=== PATIENT | female | born 2000 | race Two or more races ===

== ENCOUNTER 2024-08-02 11:37 | Outpatient (AMB) | payer MEDICAID, SELFPAY ==
[2024-08-02 11:43] VITALS: BP 149/88; PULSE 90; RESP 16; TEMP 36.2; O2SAT 99
--- NOTE | 2024-08-02 11:43 | AMB.OBINITIA ---
Vital Signs 08/02/24 11:43 Weight 58.74 kg Weight Measurement Method Standing Scale BP 149/88 H Blood Pressure Source Automatic Cuff Blood Pressure Location Left Upper Arm Position Sitting Respiration 16 Pulse 90 Pulse Source Monitor Temp 97.2 F Temp Source Oral Pulse Oximetry (%) 99 Oxygen Delivery Method Room Air Allergies/Home Meds Allergies & Medications Allergies No Known Allergies Allergy (Verified 08/03/24 08:24) Medication Reconciliation No Known Home Medications 08/02/24 [History] Intake Visit Data Collection New Patient or Established: New Patient (never been to [facility]) Reason for Visit:: INitial OB Transfer of Care Consent obtained for Telemed Visit: No Seen by Clinical Staff ONLY (RN/MA): No Combatant Diver Officer Required: Yes Combatant Diver Officer's name/title: TEE WHITAKER / MEDICAL ASSITANT Do You Feel Safe at Home: Yes Authorities Contacted: N/A PCP or OBGYN visit in last 3 months: No Hx Now: Yes Are you currently on any form of Control: No Pain Present Currently: Yes Pain Scale Used: Jones-Castro/Numerical Pain scale:: 0 Smoking Status Smoking Status: Never smoker Questionnaires Covid-19 Vaccine Questionnaire Has patient been vacinated for Covid-19 Have you been vacinated for Covid-19: No PHQ-9 PHQ-2 Over the last 2 weeks, how often have you been bothered by any of the following problems? 1. Little interest or pleasure in doing things: not at all 2. Feeling down, depressed, or hopeless: not at all Total score: 0 Depression screen completed yes Social History Living Situation History Marital Status: Lives With: Family Housing: House Tobacco History Smoking Status: Never smoker Alcohol History Alcohol Intake: Never Domestic Abuse History Do You Feel Safe at Home: Yes Past Medical History Past Medical History Have you ever been diagnosed with any of the following: History of Present Illness HPI Narrative Patient is a presenting for transfer of care from another facility. Her estimated due date is 09/20/2024, finalized based on a first trimester ultrasound performed on 05/02/2024, which dated the at 19 weeks and 6 days. Last menstrual period was 12/26/2023, but dating was established by ultrasound due to uncertainty. Patient denies any complications in this . She reports experiencing intermittent pain, consistent with normal physiological changes in preparation for labor. Patient also mentions occasional periods of decreased movement, lasting up to 4 hours, which has caused some concern. Diagnostic Test Results and Labs: - Blood group: O-positive - RPR: non-reactive - Hepatitis B: negative - HIV: negative - Gonorrhea and chlamydia: negative - One-hour glucose tolerance: 82 (performed on 03-16-2024) - Cystic fibrosis testing: negative - NIPT: negative - Ultrasound (05-02-2024): Confirmed gestational age of 19 weeks and 6 days, estimated due date of 09-20-2024 - heart rate: 145 bpm OB Initial Visit Menstrual History Menstrual reliability: definite Flow: normal Menstrual regularity: regular Monthly: Yes On control pills at conception: No OB History : 1 Para: 0 # of Living Children: 0 Infection History & Risk Evaluation History of STDs: none HIV risk evaluation: low risk Hepatitis B risk evaluation: low risk Patient or partner has history of Genital Herpes: No Varicella/chicken pox status: immunized Genetic Screening & History Genetic Screening/Teratology Counseling - Includes patient, baby's father, or anyone in either family with: 1. Patient's age 35 years or older as of estimated date of delivery: No 2. Thalassemia (Togolese, Cook Islander, Mediterranean, or Background); MCV less than 80: No 3. Neural Tube Defect (Meningomyelocele, Spina Bifida, or Anencephaly): No 4. Congenital Heart Defect: No 5. Down Syndrome: No 6. Cliff-Sachs (Ashkenazi Mormonism, Cajun, Amharic Maltese): No 7. Garcia Disease (Ashkenazi Mormonism): No 8. Familial Dysautonomia (Ashkenazi Mormonism): No 9. Sickle Cell Disease or Trait (): No 10. Hemophilia or other blood disorders: No 11. Muscular Dystrophy: No 12. Cystic Fibrosis: No 13. Griggs's Chorea: No 14. Mental Retardation/Autism: No 15. Other inherited genetic or chromosomal disorder: No 16. Maternal Metabolic Disorder (EG,TYPE 1 Diabetes, PKU): No 17. Patient or baby's father had a child with defects not listed above: No 18. Recurrent loss or a stillbirth: No 19. Medications (including supplements, vitamins, herbs or otc drugs)/illicit/recreational drugs/alcohol since last menstrual period: No 20. Any other: No Infection History 1. Live with someone with TB or exposed to TB: No 2. Rash or viral illness since last menstrual period: No 3. Hepatitis B,C: No Other (see comments) Source: [employer] OB Flowsheet OB Flowsheet Initial Weight: Not Recorded Date <del>?</del> EGA Weight Edema CTX Effacement BP Fundal ht Pres Dilation Effacement Station Visit Note Alb Glu FHR Mov 08/02/24 <del>?</del> 33w 0d 58.74 kg 149/88 145 Review of Systems Review of Systems Systems Reviewed: All systems reviewed, normal except as documented Exam General Limitations: no limitations General Appearance: alert, in no apparent distress, comfortable, cooperative, healthy appearing, well developed and well groomed Head Head exam: atraumatic, normocephalic and normal inspection Neck Neck exam: Present normal inspection, full ROM and trachea midline Chest Chest inspection: Present normal inspection and symmetric chest wall rise Abdominal Abdominal exam: Present soft and normal bowel sounds Back Back exam: Present normal inspection and full ROM Psych Psychiatric exam: Present normal affect and normal mood Skin Skin exam: Present warm, dry, intact and normal color Other Other exam information: FHR 145 Assessment & Plan Diagnosis / Problem List (1) Normal first with uncertain date of last menstrual period in third trimester, antepartum: Status: Acute Plan: - EVI is 09/20/2024. Blood group is O-positive. - labs within normal limits, including negative infectious disease screening. - One-hour glucose tolerance test result: 82. - Patient denies complications. - heart rate 145 bpm, within normal range. - Patient reports intermittent pain, assessed as normal physiological preparation for labor. Plan: - Continue vitamins. - Schedule routine follow-up in 2 weeks. - Educated patient on normal movement patterns, including sleep cycles up to 4 hours. - Instructed patient to present to hospital for evaluation if concerned about decreased movement. Office Procedures OB Clinic LOC & Office Proc's Nursing/Assessment Patient Status: Initial/New Patient OB Clinic Nursing Assessment: BP Monitoring, Medication Reconciliation, Update PMH in EMR and Vital Signs OB Clinic Coordination of Care: Consent,records obtained, informed consent, Education Simp Pt/Fam, Lab and Imaging orders, Results/Orders obtained and Staff clarify orders Special Needs: Heart tones New Patient Charge New Patient Point Assignment: 1124 New Patient Point Charge: INSURANCE OPERATIONS REP Level 3 ([id number]) Antepartum Initial or Follow-up Antepartum Initial Visit: Yes
--- NOTE | 2024-08-03 08:21 | OBCLNT_ITS ---
Vital Signs 08/02/24 11:43 Weight 58.74 kg Weight Measurement Method Standing Scale BP 149/88 H Blood Pressure Source Automatic Cuff Blood Pressure Location Left Upper Arm Position Sitting Respiration 16 Pulse 90 Pulse Source Monitor Temp 97.2 F Temp Source Oral Pulse Oximetry (%) 99 Oxygen Delivery Method Room Air Allergies/Home Meds Allergies & Medications Allergies No Known Allergies Allergy (Verified 08/03/24 08:24) Medication Reconciliation No Known Home Medications 08/02/24 [History] Intake Visit Data Collection New Patient or Established: New Patient (never been to [facility]) Reason for Visit:: OB Transfer of Care Consent obtained for Telemed Visit: No Seen by Clinical Staff ONLY (RN/MA): No Inward Toll Operator Required: Yes Inward Toll Operator's name/title: star alonzo ma Do You Feel Safe at Home: Yes Authorities Contacted: N/A PCP or OBGYN visit in last 3 months: No Hx Now: Yes Are you currently on any form of Control: No Pain Present Currently: No Pain Scale Used: Jones-Castro/Numerical Pain scale:: 0 Smoking Status Smoking Status: Never smoker Questionnaires Covid-19 Vaccine Questionnaire Has patient been vacinated for Covid-19 Have you been vacinated for Covid-19: No PHQ-9 PHQ-2 Over the last 2 weeks, how often have you been bothered by any of the following problems? 1. Little interest or pleasure in doing things: not at all 2. Feeling down, depressed, or hopeless: not at all Total score: 0 Depression screen completed yes Social History Living Situation History Marital Status: Lives With: Family Housing: House Tobacco History Smoking Status: Never smoker Alcohol History Alcohol Intake: Never Domestic Abuse History Do You Feel Safe at Home: Yes Past Medical History Past Medical History Have you ever been diagnosed with any of the following: History of Present Illness HPI Narrative Patient is a presenting for transfer of care from another facility. Her estimated due date is 09/20/2024, finalized based on a first trimester ultrasound performed on 05/02/2024, which dated the at 19 weeks and 6 days. Last menstrual period was 12/26/2023, but dating was established by ultrasound due to uncertainty. Patient denies any complications in this . She reports experiencing intermittent pain, consistent with normal physiological changes in preparation for labor. Patient also mentions occasional periods of decreased movement, lasting up to 4 hours, which has caused some concern. Diagnostic Test Results and Labs: - Blood group: O-positive - RPR: non-reactive - Hepatitis B: negative - HIV: negative - Gonorrhea and chlamydia: negative - One-hour glucose tolerance: 82 (performed on 03-16-2024) - Cystic fibrosis testing: negative - NITD: negative - Ultrasound (05-02-2024): Confirmed gestational age of 19 weeks and 6 days, estimated due date of 09-20-2024 - heart rate: 145 bpm OB Initial Visit Menstrual History Menstrual reliability: definite Flow: normal Menstrual regularity: regular Monthly: Yes On control pills at conception: No OB History : 1 Para: 0 Infection History & Risk Evaluation History of STDs: none HIV risk evaluation: low risk Hepatitis B risk evaluation: low risk Patient or partner has history of Genital Herpes: No Varicella/chicken pox status: immunized Genetic Screening & History Genetic Screening/Teratology Counseling - Includes patient, baby's father, or anyone in either family with: 1. Patient's age 35 years or older as of estimated date of delivery: No 2. Thalassemia (Lithuanian, Macedonian, Mediterranean, or Background); MCV less than 80: No 3. Neural Tube Defect (Meningomyelocele, Spina Bifida, or Anencephaly): No 4. Congenital Heart Defect: No 5. Down Syndrome: No 6. Cliff-Sachs (Ashkenazi Temple, Cajun, Djiboutian Roby): No 7. Garcia Disease (Ashkenazi Temple): No 8. Familial Dysautonomia (Ashkenazi Temple): No 9. Sickle Cell Disease or Trait (): No 10. Hemophilia or other blood disorders: No 11. Muscular Dystrophy: No 12. Cystic Fibrosis: No 13. [place]'s Chorea: No 14. Mental Retardation/Autism: No 15. Other inherited genetic or chromosomal disorder: No 16. Maternal Metabolic Disorder (EG,TYPE 1 Diabetes, PKU): No 17. Patient or baby's father had a child with defects not listed above: No 18. Recurrent loss or a stillbirth: No 19. Medications (including supplements, vitamins, herbs or otc drugs)/illicit/recreational drugs/alcohol since last menstrual period: No 20. Any other: No Infection History 1. Live with someone with TB or exposed to TB: No 2. Rash or viral illness since last menstrual period: No 3. Hepatitis B,C: No Other (see comments) Source: [employer] OB Flowsheet OB Flowsheet Initial Weight: Not Recorded Date -?-?-?-?-?-?-?-?-?-?-?-?- EGA Weight Edema CTX Effacement BP Fundal ht Pres Dilation Effacement Station Visit Note Alb Glu FHR Mov 08/02/24 -?-?-?-?-?-?-?-?-?-?-?-?- 33w 0d 58.74 kg 149/88 145 Review of Systems Review of Systems Systems Reviewed: All systems reviewed, normal except as documented Exam General Limitations: no limitations General Appearance: alert, in no apparent distress, comfortable, cooperative, healthy appearing, well developed and well groomed Head Head exam: atraumatic, normocephalic and normal inspection Eye Eye exam: Present normal appearance, PERRL and EOMI Neck Neck exam: Present normal inspection, full ROM and trachea midline Chest Chest inspection: Present normal inspection and symmetric chest wall rise Abdominal Abdominal exam: Present soft and normal bowel sounds Back Back exam: Present normal inspection and full ROM Psych Psychiatric exam: Present normal affect and normal mood Skin Skin exam: Present warm, dry, intact and normal color Assessment & Plan Diagnosis / Problem List (1) Normal first with uncertain date of last menstrual period in third trimester, antepartum: Status: Acute Plan: , at 19 weeks 6 days gestation: - Patient is 21-year-old at 19 weeks 6 days gestation based on ultrasound dating. - EVI is 09/20/2024. Blood group is O-positive. - labs within normal limits, including negative infectious disease screening. - One-hour glucose tolerance test result: 82. - Patient denies complications. - heart rate 145 bpm, within normal range. - Patient reports intermittent pain, assessed as normal physiological preparation for labor. Plan: - Continue vitamins. - Schedule routine follow-up in 2 weeks. - Educated patient on normal movement patterns, including sleep cycles up to 4 hours. - Instructed patient to present to hospital for evaluation if concerned about decreased movement. Office Procedures OB Clinic LOC & Office Proc's Nursing/Assessment Patient Status: Initial/New Patient OB Clinic Nursing Assessment: BP Monitoring, Medication Reconciliation, Update PMH in EMR and Vital Signs OB Clinic Coordination of Care: Consent,records obtained, informed consent, Education Simp Pt/Fam, Lab and Imaging orders, Results/Orders obtained and Staff clarify orders Special Needs: Heart tones New Patient Charge New Patient Point Assignment: 1124 New Patient Point Charge: FOAM RUBBER CURER Level 3 ([id number]) Antepartum Initial or Follow-up Antepartum Initial Visit: Yes
== END 2024-08-02 12:04 | disposition home or self-care (01) ==
LOC: HODSOBC 11:37
PROVIDERS: Supervising Provider Obstetrics & Gynecology; Visit Provider Obstetrics & Gynecology
DX: Z34.03 Encounter for supervision of normal first pregnancy, third trimester (principal); Z3A.00 Weeks of gestation of pregnancy not specified
CPT/HCPCS: 99203; G0463

== ENCOUNTER 2024-08-15 09:32 | Outpatient (AMB) | payer MEDICAID, SELFPAY ==
--- NOTE | 2024-08-15 09:38 | AMB.OBVISIT ---
Vital Signs 08/15/24 09:39 Weight 59.08 kg Weight Measurement Method Standing Scale BP 127/73 Blood Pressure Source Automatic Cuff Blood Pressure Location Left Upper Arm Position Sitting Respiration 16 Pulse 82 Pulse Source Monitor Temp 96.9 F Temp Source Oral Pulse Oximetry (%) 96 Oxygen Delivery Method Room Air Allergies/Home Meds Allergies & Medications Allergies No Known Allergies Allergy (Verified 08/15/24 09:40) Medication Reconciliation No Known Home Medications 08/02/24 [History Confirmed 08/15/24] Intake Visit Data Collection New Patient or Established: Established Patient (seen at [facility] within 3 years) Reason for Visit:: CARE Seen by Clinical Staff ONLY (RN/MA): No Director Chemistry Required: Yes Director Chemistry's name/title: Acacia Sullivan MA Do You Feel Safe at Home: Yes Authorities Contacted: N/A PCP or OBGYN visit in last 3 months: Yes Date of Last PCP or OBGYN visit: 11/30/24 Hx Now: Yes Are you currently on any form of Control: No Last menstrual period: 12/24/24 Pain Present Currently: No Pain Scale Used: Jones-Castro/Numerical Pain scale:: 0 Smoking Status Smoking Status: Never smoker Questionnaires Covid-19 Vaccine Questionnaire Has patient been vacinated for Covid-19 Have you been vacinated for Covid-19: Yes PHQ-9 PHQ-2 Over the last 2 weeks, how often have you been bothered by any of the following problems? 1. Little interest or pleasure in doing things: not at all 2. Feeling down, depressed, or hopeless: not at all Total score: 0 PHQ-9 3. Trouble falling or staying asleep, or sleeping too much: Not at all 4. Feeling tired or having little energy: Not at all 5. Poor appetite or overeating: Not at all 6. Feeling bad about yourself - or that you are a failure or have let yourself or your family down: Not at all 7. Trouble concentrating on things, such as reading the newspaper or watching television: Not at all 8. Moving or speaking so slowly that other people could have noticed? - Or the opposite - being so fidgety or restless that you have been moving around a lot more than usual: not at all 9. Thoughts that you would be better off or of hurting yourself in some way: Not at all Total score: 0 Source: Developed by Drs. Shalom Espinal, Gena Alvarado, Romulo Hauser and colleagues, with an educational rohith from [employer]. Depression screen completed yes Social History Living Situation History Marital Status: Lives With: Family Housing: House Tobacco History Smoking Status: Never smoker Second Hand Smoke Exposure: No Alcohol History Alcohol Intake: Never Substance Use History Substance Use: NONE Domestic Abuse History Do You Feel Safe at Home: Yes Past Medical History Past Medical History Have you ever been diagnosed with any of the following: Neurological Problems Cerebrovascular Accident (CVA): No Transient Ischemic Attacks (TIA): No Dementia: No Alzheimer's Disease: No Parkinson's Disease: No Brain Tumor: No Meningitis: No Seizures: No Epilepsy: No Multiple Sclerosis: No Cerebral Palsy: No Amyotrophic Lateral Sclerosis (ALS/Lilibeth Gehrig's): No Guillain-[place] Syndrome: No Cardiology Problems Myocardial Infarction: No Cardiac Arrhythmia: No Atrial Fibrillation: No Angina: No Heart Murmur: No Coronary Artery Disease: No Atherosclerotic Heart Disease: No Peripheral Vascular Disease: No Respiratory Problems Chronic Obstructive Pulmonary Disease (COPD): No Asthma: No Bronchitis: No Emphysema: No Pneumonia: No Pulmonary Fibrosis: No Tuberculosis: No Respiratory Aspiration: No Orthopnea: No Hx Cough: No Cough: No Wheezing: No Chest Deformities: No Smoking: No Smoking Cessation Counseling: No Smoking Exposure: No Tobacco Use: No Clubbing: No Exposure to Respiratory Irritants: No Intubation: No Stomache/Intestinal Problems Liver Cancer: No Hepatitis: No Cirrhosis: No Pancreatic Cancer: No Pancreatitis: No Genital/Urinary Problems Chronic Kidney Disease: No Renal Disease: No Kidney Stones: No Polycystic Kidney Disease: No Neurogenic Bladder: No Inguinal Hernia: No Dialysis: No Prostate Cancer: No Benign Prostatic Hyperplasia: No Reproductive Problems Breast Cancer: No Endometriosis: No Fibroids: No Genital Herpes: No Gonorrhea: No Pelvic Inflammatory Disease: No Polycystic Ovarian Syndrome: No Previous Pregnancies: No Syphilis: No Testicular Cancer: No Uterine Prolapse: No Musculoskeletal Problems Muscular Dystrophy: No Myasthenia Gravis: No Marfan's Syndrome: No Bone Cancer: No Arthritis: No Rheumatoid Arthritis: No Osteoporosis: No Degenerative Disk Disease: No Gout: No Head,Eye,Nose,Throat Problems Cataracts: No Glaucoma: No Blind: No Retinal Detachment: No Macular Degeneration: No Chronic Ear Infections: No Deafness: No Eye Prosthesis: No Endocrine Problems Diabetes Mellitus Type 1: No Diabetes Mellitus Type 2: No Buckner's Syndrome: No Flagler's Disease: No Thyroid Cancer: No Blood Problems Anemia: No Leukemia: No Hemophilia: No Thalassemia: No Sickle Cell Disease: No Clotting Problems: No Psychologic Problems Schizophrenia: No Recreational Drug Use: No Bipolar Disorder: No Depression: No Anxiety: No Behavior Problems: No Self-Mutilation: No Attention Deficit Disorder: No Attention Deficit Hyperactivity Disorder: No Depression: No Post Traumatic Stress Disorder: No Eating Disorder: No Other Problems Hospitalization: No Autoimmune Disease: No Down Syndrome: No Autism: No Developmental Delay: No Cosmetic Surgery: No Surgical History Angioplasty: No Appendectomy: No Bariatric Surgery: No History of Present Illness HPI Narrative 24-year-old presenting for routine care at 34 weeks and 6 days gestation based on an estimated due date of 09-20-2024. Patient transferred care from an outside facility. She reports normal movement and denies contractions or other problems. Patient had elevated blood pressure at her initial visit, but subsequent measurements have been within normal limits. No CTX/LOF/VB, reports good FM+ Review of Systems Review of Systems Systems Reviewed: All systems reviewed, normal except as documented Visit EVI Calculator Estimated Delivery Date Method Current WG Current Estimate 09/20/24 Ultrasound #1 34w 6d Other Estimates 10/01/24 LMP (Uncertain) 33w 2d Initial Weight: Not Recorded Date <del>?</del> EGA Weight Edema CTX Effacement BP Fundal ht Pres Dilation Effacement Station Visit Note Alb Glu FHR Mov 08/02/24 <del>?</del> 33w 0d 58.74 kg 149/88 145 08/15/24 <del>?</del> 34w 6d 59.08 kg 127/73 150 Exam General Limitations: no limitations General Appearance: alert, in no apparent distress, comfortable, cooperative, healthy appearing, well developed and well groomed Head Head exam: atraumatic, normocephalic and normal inspection Neck Neck exam: Present normal inspection, full ROM and trachea midline Chest Chest inspection: Present normal inspection and symmetric chest wall rise Abdominal Abdominal exam: Present soft and normal bowel sounds Extremities Extremities exam: Present normal inspection and full ROM Back Back exam: Present normal inspection and full ROM Psych Psychiatric exam: Present normal affect and normal mood Skin Skin exam: Present warm, dry, intact and normal color Assessment & Plan Diagnosis / Problem List (1) Normal first with uncertain date of last menstrual period in third trimester, antepartum: Status: Acute Plan: Problem-Based Assessment and Plan Routine care Elizabeth is a 24-year-old at 34 weeks and 6 days gestation based on an estimated due date of 09-20-2024. She transferred care from an outside facility. Her blood pressure was initially high at the first visit but has since normalized. heart rate is 148 bpm, which is within normal limits. The patient reports normal movement and denies contractions or other problems. - Continue weekly visits - Perform Group B Streptococcus (GBS) screening at next visit - Monitor blood pressure at subsequent visits Pt Education Educated the patient on labor signs, including regular contractions, lower back pain, and changes in vaginal discharge. Advised avoiding heavy lifting and getting adequate rest. Instructed to contact the office immediately if any signs occur. Discussed the importance of a balanced diet rich in folic acid, iron, and calcium, and provided a list of recommended and to-avoid foods. Emphasized avoiding high-sugar foods to reduce gestational diabetes risk. Encouraged hydration and frequent, small meals for energy. Additional Assessment Medical Decision Making Elizabeth Foss is a 24-year-old at 34 weeks and 6 days gestation presenting for routine care. The patient's blood pressure was initially high at her first visit but has since normalized. heart rate is noted to be 148 bpm, which is within normal limits for gestational age. The absence of reported contractions or decreased movement suggests a low risk for labor or distress at this time. Given the patient's history of previously elevated blood pressure, continued monitoring is warranted to assess for potential development of -induced hypertension or preeclampsia. The plan for weekly visits and upcoming Group B Streptococcus (GBS) screening aligns with standard care guidelines for this gestational age. Additional Plan Follow Up: 2 Weeks Office Procedures OB Clinic LOC & Office Proc's Nursing/Assessment Patient Status: Established Patient OB Clinic Nursing Assessment: Medication Reconciliation, Update PMH in EMR and Vital Signs OB Clinic Coordination of Care: Complex Care and Chronic Disease 1-5, Consent,records obtained, informed consent, Education Simp Pt/Fam and Staff clarify orders Special Needs: Heart tones Established Patient Charge Established Patient Point Assignment: 115 Established Patient Point Charge: EP Level 3 (80-115)
[2024-08-15 09:39] VITALS: BP 127/73; PULSE 82; RESP 16; TEMP 36.1; O2SAT 96
== END 2024-08-15 09:51 | disposition home or self-care (01) ==
LOC: HODSOBC 09:32
PROVIDERS: PCP Obstetrics & Gynecology; Referring Provider Obstetrics & Gynecology; Supervising Provider Obstetrics & Gynecology; Visit Provider Obstetrics & Gynecology
DX: Z34.93 Encounter for supervision of normal pregnancy, unspecified, third trimester (principal); Z3A.34 34 weeks gestation of pregnancy
CPT/HCPCS: 99213; G0463

== ENCOUNTER 2024-08-21 09:48 | Outpatient (AMB) | payer MEDICAID, SELFPAY ==
[2024-08-21 09:55] VITALS: BP 121/71; PULSE 81; RESP 16; TEMP 36.2; O2SAT 95
--- NOTE | 2024-08-21 09:55 | OBCLNT_ITS ---
Vital Signs 08/21/24 09:55 Weight 59.421 kg Weight Measurement Method Standing Scale BP 121/71 Blood Pressure Source Automatic Cuff Blood Pressure Location Left Upper Arm Position Sitting Respiration 16 Pulse 81 Pulse Source Monitor Temp 97.2 F Temp Source Oral Pulse Oximetry (%) 95 Oxygen Delivery Method Room Air Allergies/Home Meds Allergies & Medications Allergies No Known Allergies Allergy (Verified 08/21/24 09:59) Medication Reconciliation No Known Home Medications 08/02/24 [History Confirmed 08/21/24] Intake Visit Data Collection New Patient or Established: Established Patient (seen at [facility] within 3 years) Reason for Visit:: care, GBS Swab Seen by Clinical Staff ONLY (RN/MA): No Graphic Manager Required: Yes Graphic Manager's name/title: Acacia Sullivan Do You Feel Safe at Home: Yes Authorities Contacted: N/A PCP or OBGYN visit in last 3 months: Yes Hx Now: Yes Are you currently on any form of Control: No Last menstrual period: 12/25/23 Pain Present Currently: No Pain Scale Used: Jones-Castro/Numerical Pain scale:: 0 Smoking Status Smoking Status: Never smoker Questionnaires Covid-19 Vaccine Questionnaire Has patient been vacinated for Covid-19 Have you been vacinated for Covid-19: No PHQ-9 PHQ-2 Over the last 2 weeks, how often have you been bothered by any of the following problems? 1. Little interest or pleasure in doing things: not at all 2. Feeling down, depressed, or hopeless: not at all Total score: 0 PHQ-9 3. Trouble falling or staying asleep, or sleeping too much: Not at all 4. Feeling tired or having little energy: Not at all 5. Poor appetite or overeating: Not at all 6. Feeling bad about yourself - or that you are a failure or have let yourself or your family down: Not at all 7. Trouble concentrating on things, such as reading the newspaper or watching television: Not at all 8. Moving or speaking so slowly that other people could have noticed? - Or the opposite - being so fidgety or restless that you have been moving around a lot more than usual: not at all 9. Thoughts that you would be better off or of hurting yourself in some way: Not at all Total score: 0 Source: Developed by Drs. Shalom Espinal, Gena Alvarado, Romulo Hauser and colleagues, with an educational rohith from [email or web address] Application. Depression screen completed yes Social History Living Situation History Lives With: Family Housing: House Tobacco History Smoking Status: Never smoker Second Hand Smoke Exposure: No Alcohol History Alcohol Intake: Never Substance Use History Substance Use: NONE Domestic Abuse History Do You Feel Safe at Home: Yes Past Medical History Past Medical History Have you ever been diagnosed with any of the following: Neurological Problems Cerebrovascular Accident (CVA): No Transient Ischemic Attacks (TIA): No Dementia: No Alzheimer's Disease: No Parkinson's Disease: No Brain Tumor: No Meningitis: No Seizures: No Epilepsy: No Multiple Sclerosis: No Cerebral Palsy: No Amyotrophic Lateral Sclerosis (ALS/Lilibeth Gehrig's): No Guillain-[place] Syndrome: No Cardiology Problems Myocardial Infarction: No Cardiac Arrhythmia: No Atrial Fibrillation: No Angina: No Heart Murmur: No Coronary Artery Disease: No Atherosclerotic Heart Disease: No Peripheral Vascular Disease: No Respiratory Problems Chronic Obstructive Pulmonary Disease (COPD): No Asthma: No Bronchitis: No Emphysema: No Pneumonia: No Pulmonary Fibrosis: No Tuberculosis: No Respiratory Aspiration: No Orthopnea: No Hx Cough: No Cough: No Wheezing: No Chest Deformities: No Smoking: No Smoking Cessation Counseling: No Smoking Exposure: No Tobacco Use: No Clubbing: No Exposure to Respiratory Irritants: No Intubation: No Stomache/Intestinal Problems Liver Cancer: No Hepatitis: No Cirrhosis: No Pancreatic Cancer: No Pancreatitis: No Genital/Urinary Problems Renal Disease: No Kidney Stones: No Polycystic Kidney Disease: No Neurogenic Bladder: No Inguinal Hernia: No Dialysis: No Prostate Cancer: No Benign Prostatic Hyperplasia: No Reproductive Problems Breast Cancer: No Endometriosis: No Fibroids: No Genital Herpes: No Gonorrhea: No Pelvic Inflammatory Disease: No Polycystic Ovarian Syndrome: No Previous Pregnancies: No Syphilis: No Testicular Cancer: No Uterine Prolapse: No Musculoskeletal Problems Muscular Dystrophy: No Myasthenia Gravis: No Marfan's Syndrome: No Bone Cancer: No Arthritis: No Rheumatoid Arthritis: No Osteoporosis: No Degenerative Disk Disease: No Gout: No Head,Eye,Nose,Throat Problems Cataracts: No Glaucoma: No Blind: No Retinal Detachment: No Macular Degeneration: No Chronic Ear Infections: No Deafness: No Eye Prosthesis: No Endocrine Problems Diabetes Mellitus Type 1: No Diabetes Mellitus Type 2: No [place]ina's Syndrome: No Dixon's Disease: No Thyroid Cancer: No Blood Problems Anemia: No Leukemia: No Hemophilia: No Thalassemia: No Sickle Cell Disease: No Clotting Problems: No Psychologic Problems Schizophrenia: No Recreational Drug Use: No Bipolar Disorder: No Depression: No Anxiety: No Behavior Problems: No Self-Mutilation: No Attention Deficit Disorder: No Attention Deficit Hyperactivity Disorder: No Depression: No Post Traumatic Stress Disorder: No Eating Disorder: No Other Problems Hospitalization: No Down Syndrome: No Autism: No Developmental Delay: No Cosmetic Surgery: No Surgical History Angioplasty: No Appendectomy: No Bariatric Surgery: No History of Present Illness HPI Narrative History of Present Illness The patient is presenting for a routine visit. She is scheduled for a section. The patient denies any current problems, headaches, or abdominal pain. The fetus is noted to be active. No CTX/LOF/VB, reports good FM+ Review of Systems Review of Systems Systems Reviewed: All systems reviewed, normal except as documented Visit EVI Calculator Estimated Delivery Date Method Current WG Current Estimate 09/20/24 Ultrasound #1 36w 0d Other Estimates 10/01/24 LMP (Uncertain) 34w 3d Initial Weight: Not Recorded Date -?-?-?-?-?-?-?-?-?-?-?-?- EGA Weight Edema CTX Effacement BP Fundal ht Pres Dilation Effacement Station Visit Note Alb Glu FHR Mov 08/02/24 -?-?-?-?-?-?-?--?-?-?-?-?- 33w 0d 58.74 kg 149/88 145 08/15/24 -?-?-?-?-?-?-?-?-?-?-?-?- 34w 6d 59.08 kg 127/73 150 08/21/24 -?-?-?-?-?-?-?-?-?-?-?-?- 35w 5d 59.421 kg 121/71 135 Exam General Limitations: no limitations General Appearance: alert, in no apparent distress, comfortable, cooperative, healthy appearing, well developed and well groomed Head Head exam: atraumatic, normocephalic and normal inspection Neck Neck exam: Present normal inspection, full ROM and trachea midline Chest Chest inspection: Present normal inspection and symmetric chest wall rise Abdominal Abdominal exam: Present soft and normal bowel sounds Extremities Extremities exam: Present normal inspection and full ROM Back Back exam: Present normal inspection and full ROM Psych Psychiatric exam: Present normal affect and normal mood Skin Skin exam: Present warm, dry, intact and normal color Assessment & Plan Diagnosis / Problem List (1) Normal first with uncertain date of last menstrual period in third trimester, antepartum: Status: Acute Plan: Patient is and scheduled for a . Group B Streptococcus (GBS) screening is being performed, though noted as less critical due to planned C- section delivery. heart rate was assessed and found to be 145 bpm, which is within normal range. The patient reports no headaches or abdominal pain. - Perform GBS culture swab (patient given option to self-administer) - Follow-up appointment scheduled in one week - Continue monitoring well-being and maternal symptoms Additional Plan Follow Up: 1 Week Office Procedures OB Clinic LOC & Office Proc's Nursing/Assessment Patient Status: Established Patient OB Clinic Nursing Assessment: Medication Reconciliation, Update PMH in EMR and Vital Signs OB Clinic Coordination of Care: Complex Care and Chronic Disease 1-5, Consent,records obtained, informed consent, Education Simp Pt/Fam, Lab and Imaging orders and Staff clarify orders Special Needs: Heart tones Miscellaneous Interventions: Culture Specimen Collection Established Patient Charge Established Patient Point Assignment: 145 Established Patient Point Charge: EP Level 4 (120-155)
== END 2024-08-21 10:22 | disposition home or self-care (01) ==
LOC: HODSOBC 09:48
PROVIDERS: PCP Obstetrics & Gynecology; Referring Provider Obstetrics & Gynecology; Supervising Provider Obstetrics & Gynecology; Visit Provider Obstetrics & Gynecology
DX: Z34.03 Encounter for supervision of normal first pregnancy, third trimester (principal); Z3A.00 Weeks of gestation of pregnancy not specified
CPT/HCPCS: 99214; G0463

== ENCOUNTER 2024-08-28 10:45 | Outpatient (AMB) | payer MEDICAID, SELFPAY ==
[2024-08-28 10:55] VITALS: BP 121/74; PULSE 84; RESP 16; TEMP 36.3; O2SAT 95
--- NOTE | 2024-08-28 10:55 | OBCLNT_ITS ---
Vital Signs 08/28/24 10:55 Height 154 m Height Method Stated Weight 61.008 kg Weight Measurement Method Standing Scale BMI 0.0 BP 121/74 Blood Pressure Source Automatic Cuff Blood Pressure Location Left Upper Arm Position Sitting Respiration 16 Pulse 84 Pulse Source Monitor Temp 97.3 F Temp Source Oral Pulse Oximetry (%) 95 Oxygen Delivery Method Room Air Allergies/Home Meds Allergies & Medications Allergies No Known Allergies Allergy (Verified 09/07/24 13:40) Medication Reconciliation No Known Home Medications 08/02/24 [History Confirmed 09/07/24] Intake Visit Data Collection New Patient or Established: Established Patient (seen at [facility] within 3 years) Reason for Visit:: CARE Seen by Clinical Staff ONLY (RN/MA): No Do You Feel Safe at Home: Yes Authorities Contacted: N/A PCP or OBGYN visit in last 3 months: Yes Date of Last PCP or OBGYN visit: 08/21/24 Hx Now: Yes Are you currently on any form of Control: No Last menstrual period: 12/25/23 Pain Present Currently: No Pain Scale Used: Jones-Castro/Numerical Pain scale:: 0 Smoking Status Smoking Status: Never smoker Questionnaires Covid-19 Vaccine Questionnaire Has patient been vacinated for Covid-19 Have you been vacinated for Covid-19: Yes PHQ-9 PHQ-2 Over the last 2 weeks, how often have you been bothered by any of the following problems? 1. Little interest or pleasure in doing things: not at all 2. Feeling down, depressed, or hopeless: not at all Total score: 0 PHQ-9 3. Trouble falling or staying asleep, or sleeping too much: Not at all 4. Feeling tired or having little energy: Not at all 5. Poor appetite or overeating: Not at all 6. Feeling bad about yourself - or that you are a failure or have let yourself or your family down: Not at all 7. Trouble concentrating on things, such as reading the newspaper or watching television: Not at all 8. Moving or speaking so slowly that other people could have noticed? - Or the opposite - being so fidgety or restless that you have been moving around a lot more than usual: not at all 9. Thoughts that you would be better off or of hurting yourself in some way: Not at all Total score: 0 Source: Developed by Drs. Shalom Espinal, Gena Alvarado, Romulo Hauser and colleagues, with an educational rohith from [employer]. Depression screen completed yes Social History Living Situation History Marital Status: Single Lives With: Family Housing: House Tobacco History Smoking Status: Never smoker Second Hand Smoke Exposure: No Alcohol History Alcohol Intake: Never Substance Use History Substance Use: NONE Domestic Abuse History Do You Feel Safe at Home: Yes Past Medical History Past Medical History Have you ever been diagnosed with any of the following: Neurological Problems Cerebrovascular Accident (CVA): No Transient Ischemic Attacks (TIA): No Dementia: No Alzheimer's Disease: No Parkinson's Disease: No Brain Tumor: No Meningitis: No Seizures: No Epilepsy: No Multiple Sclerosis: No Cerebral Palsy: No Amyotrophic Lateral Sclerosis (ALS/Lilibeth Gehrig's): No Guillain-[place] Syndrome: No Spina Bifida: No Paralysis: No Peripheral Neuropathy: No Mancilla's Palsy: No Subdural Hematoma: No Migraine: No Head Trauma: No Spinal Cord Injury: No Traumatic Brain Injury: No Cardiology Problems Myocardial Infarction: No Cardiac Arrhythmia: No Atrial Fibrillation: No Angina: No Heart Murmur: No Coronary Artery Disease: No Atherosclerotic Heart Disease: No Peripheral Vascular Disease: No Hypercholesterolemia: No Aneurysm: No Congestive Heart Failure: No Congenital Heart Disease: No Valvular Heart Disease: No Rheumatic Fever: No Cardiomyopathy: No Edema: No Pericarditis: No Cellulitis: No Deep Vein Thrombosis: No Hypertension: No Respiratory Problems Chronic Obstructive Pulmonary Disease (COPD): No Asthma: No Bronchitis: No Emphysema: No Pneumonia: No Pulmonary Fibrosis: No Tuberculosis: No Pulmonary Embolism: No Pulmonary Edema: No Respiratory Aspiration: No Orthopnea: No Hx Cough: No Cough: No Wheezing: No Chest Deformities: No Smoking: No Smoking Cessation Counseling: No Smoking Exposure: No Tobacco Use: No Clubbing: No Exposure to Respiratory Irritants: No Intubation: No Stomache/Intestinal Problems Liver Cancer: No Hepatitis: No Cirrhosis: No Pancreatic Cancer: No Pancreatitis: No Celiac Disease: No Gall Bladder Disease: No Gastrointestinal Bleed: No Colorectal Cancer: No Irritable Bowel: No Crohn's Disease: No Obstructive Bowel: No Hiatal Hernia: No Hemorrhoids: No Gastroesophageal Reflux Disease: No Genital/Urinary Problems Chronic Kidney Disease: No Renal Disease: No Kidney Stones: No Polycystic Kidney Disease: No Neurogenic Bladder: No Inguinal Hernia: No Dialysis: No Prostate Cancer: No Benign Prostatic Hyperplasia: No Reproductive Problems Breast Cancer: No Endometriosis: No Fibroids: No Genital Herpes: No Gonorrhea: No Pelvic Inflammatory Disease: No Polycystic Ovarian Syndrome: No Previous Pregnancies: No Syphilis: No Testicular Cancer: No Uterine Prolapse: No Musculoskeletal Problems Muscular Dystrophy: No Myasthenia Gravis: No Marfan's Syndrome: No Bone Cancer: No Arthritis: No Rheumatoid Arthritis: No Osteoporosis: No Degenerative Disk Disease: No Gout: No Head,Eye,Nose,Throat Problems Cataracts: No Glaucoma: No Blind: No Retinal Detachment: No Macular Degeneration: No Chronic Ear Infections: No Deafness: No Eye Prosthesis: No Endocrine Problems Diabetes Mellitus Type 1: No Diabetes Mellitus Type 2: No Yolanda's Syndrome: No [place]'s Disease: No Thyroid Cancer: No Blood Problems Anemia: No Leukemia: No Hemophilia: No Thalassemia: No Sickle Cell Disease: No Clotting Problems: No Psychologic Problems Schizophrenia: No Recreational Drug Use: No Bipolar Disorder: No Depression: No Anxiety: No Behavior Problems: No Self-Mutilation: No Attention Deficit Disorder: No Attention Deficit Hyperactivity Disorder: No Depression: No Post Traumatic Stress Disorder: No Eating Disorder: No Other Problems Hospitalization: No Down Syndrome: No Autism: No Developmental Delay: No Cosmetic Surgery: No Communicable Disease: No Cancer: No Lung Cancer: No Ovarian Cancer: No Surgical History Angioplasty: No Appendectomy: No Bariatric Surgery: No History of Present Illness HPI Narrative History of Present Illness 24yo is presenting for a routine visit @36w5d. The patient denies any current problems, headaches, or abdominal pain. The fetus is noted to be active. No CTX/LOF/VB, reports good FM+ Diagnostic Test Results and Labs: - Blood group: O-positive - RPR: non-reactive - Hepatitis B: negative - HIV: negative - Gonorrhea and chlamydia: negative - One-hour glucose tolerance: 82 (performed on 03-16-2024) - Cystic fibrosis testing: negative - NITD: negative - Ultrasound (05-02-2024): Confirmed gestational age of 19 weeks and 6 days, estimated due date of 09-20-2024 - heart rate: 145 bpm Review of Systems Review of Systems Systems Reviewed: All systems reviewed, normal except as documented Visit EVI Calculator Estimated Delivery Date Method Current WG Current Estimate 09/20/24 Ultrasound #1 38w 2d Other Estimates 10/01/24 LMP (Uncertain) 36w 5d Initial Weight: Not Recorded Date -?-?-?-?-?-?-?-?-?-?-?-?- EGA Weight Edema CTX Effacement BP Fundal ht Pres Dilation Effacement Station Visit Note Alb Glu FHR Mov 08/02/24 -?-?-?-?-?-?-?-?-?-?-?-?- 33w 0d 58.74 kg 149/88 145 08/15/24 -?-?-?-?-?-?-?-?-?-?-?-?- 34w 6d 59.08 kg 127/73 150 08/21/24 -?-?-?-?-?-?-?-?-?-?-?-?- 35w 5d 59.421 kg 121/71 135 Exam General Limitations: no limitations General Appearance: alert, in no apparent distress, comfortable, cooperative, healthy appearing, well developed and well groomed Head Head exam: atraumatic, normocephalic and normal inspection Eye Eye exam: Present normal appearance, PERRL and EOMI ENT ENT exam: Present normal exam, normal oropharynx and mucous membranes moist Neck Neck exam: Present normal inspection, full ROM and trachea midline Chest Chest inspection: Present normal inspection and symmetric chest wall rise Resp Respiratory exam: Present normal lung sounds bilaterally Card Cardiovascular exam: Present regular rate, normal rhythm and normal heart sounds Abdominal Abdominal exam: Present soft and normal bowel sounds Extremities Extremities exam: Present normal inspection and full ROM Back Back exam: Present normal inspection and full ROM Neuro Neurological exam: Present alert, oriented X3 and CN II-XII intact Psych Psychiatric exam: Present normal affect and normal mood Skin Skin exam: Present warm, dry, intact and normal color Assessment & Plan Diagnosis / Problem List (1) Normal first with uncertain date of last menstrual period in third trimester, antepartum: Status: Acute Plan Group B Streptococcus (GBS) screening is being performed heart rate was assessed and found to be 145 bpm, which is within normal range. The patient reports no headaches or abdominal pain. - Perform GBS culture swab (patient given option to self-administer) - Follow-up appointment scheduled in one week - Continue monitoring well-being and maternal symptoms Additional Assessment Educated the patient on labor signs, including regular contractions, lower back pain, and changes in vaginal discharge. Advised avoiding heavy lifti ng and getting adequate rest. Instructed to contact the office immediately if any signs occur. Discussed the importance of a balanced diet rich in folic acid, iron, and calcium, and provided a list of recommended and to-avoid foods. Emphasized avoiding high-sugar foods to reduce gestational diabetes risk. Encouraged hydration and frequent, small meals for energy. Additional Plan Follow Up: 1 Week Office Procedures OB Clinic LOC & Office Proc's Nursing/Assessment Patient Status: Established Patient OB Clinic Nursing Assessment: Medication Reconciliation, Update PMH in EMR and Vital Signs OB Clinic Coordination of Care: Complex Care and Chronic Disease 1-5, Consent,records obtained, informed consent, Education Simp Pt/Fam, Results/Orders obtained and Staff clarify orders Special Needs: Heart tones Established Patient Charge Established Patient Point Assignment: 120 Established Patient Point Charge: EP Level 4 (120-155)
== END 2024-08-28 11:01 | disposition home or self-care (01) ==
LOC: HODSOBC 10:45
PROVIDERS: PCP Obstetrics & Gynecology; Referring Provider Obstetrics & Gynecology; Supervising Provider Obstetrics & Gynecology; Visit Provider Obstetrics & Gynecology
DX: Z34.03 Encounter for supervision of normal first pregnancy, third trimester (principal); Z3A.36 36 weeks gestation of pregnancy
CPT/HCPCS: 99214; G0463

== ENCOUNTER 2024-09-07 13:32 | Outpatient (AMB) | payer MEDICAID, SELFPAY ==
--- NOTE | 2024-09-07 13:38 | OBCLNT_ITS ---
Vital Signs 09/07/24 13:39 Height 1.54 m Height Method Stated Weight 61.008 kg Weight Measurement Method Standing Scale BMI 25.7 BP 121/76 Blood Pressure Source Automatic Cuff Blood Pressure Location Left Upper Arm Position Sitting Respiration 18 Pulse 86 Pulse Source Monitor Temp 96.3 F L Temp Source Oral Pulse Oximetry (%) 98 Oxygen Delivery Method Room Air Allergies/Home Meds Allergies & Medications Allergies No Known Allergies Allergy (Verified 09/11/24 09:40) Medication Reconciliation No Known Home Medications 08/02/24 [History Confirmed 09/11/24] Intake Visit Data Collection New Patient or Established: Established Patient (seen at [facility] within 3 years) Reason for Visit:: OBC Seen by Clinical Staff ONLY (RN/MA): No Tire Servicer Required: Yes Do You Feel Safe at Home: Yes Authorities Contacted: N/A Primary Care Provider: TEE WHITAKER /MEDICAL PCP or OBGYN visit in last 3 months: Yes Date of Last PCP or OBGYN visit: 08/28/24 Hx Now: Yes Pain Present Currently: No Pain Scale Used: Jones-Castro/Numerical Pain scale:: 0 Smoking Status Smoking Status: Never smoker Questionnaires Covid-19 Vaccine Questionnaire Has patient been vacinated for Covid-19 Have you been vacinated for Covid-19: Yes PHQ-9 PHQ-2 Over the last 2 weeks, how often have you been bothered by any of the following problems? 1. Little interest or pleasure in doing things: not at all 2. Feeling down, depressed, or hopeless: not at all Total score: 0 PHQ-9 3. Trouble falling or staying asleep, or sleeping too much: Not at all 4. Feeling tired or having little energy: Not at all 5. Poor appetite or overeating: Not at all 6. Feeling bad about yourself - or that you are a failure or have let yourself or your family down: Not at all 7. Trouble concentrating on things, such as reading the newspaper or watching television: Not at all 8. Moving or speaking so slowly that other people could have noticed? - Or the opposite - being so fidgety or restless that you have been moving around a lot more than usual: not at all 9. Thoughts that you would be better off or of hurting yourself in some way: Not at all Total score: 0 If you checked off any problems, how difficult have these problems made it for you to do your work, take care of things at home, or get along with other people?: not difficult at all Source: Developed by Drs. Shlaom Espinal, Gena Alvarado, Romulo Hauser and colleagues, with an educational rohith from [employer]. Depression screen completed yes Social History Living Situation History Lives With: Family Housing: House Tobacco History Smoking Status: Never smoker Second Hand Smoke Exposure: No Alcohol History Alcohol Intake: Never Substance Use History Substance Use: NONE Domestic Abuse History Do You Feel Safe at Home: Yes Past Medical History Past Medical History Have you ever been diagnosed with any of the following: Neurological Problems Cerebrovascular Accident (CVA): No Transient Ischemic Attacks (TIA): No Dementia: No Alzheimer's Disease: No Parkinson's Disease: No Brain Tumor: No Meningitis: No Seizures: No Epilepsy: No Multiple Sclerosis: No Cerebral Palsy: No Amyotrophic Lateral Sclerosis (ALS/Lilibeth Gehrig's): No Guillain-[place] Syndrome: No Spina Bifida: No Paralysis: No Peripheral Neuropathy: No Mancilla's Palsy: No Subdural Hematoma: No Migraine: No Head Trauma: No Spinal Cord Injury: No Traumatic Brain Injury: No Cardiology Problems Myocardial Infarction: No Cardiac Arrhythmia: No Atrial Fibrillation: No Angina: No Heart Murmur: No Coronary Artery Disease: No Atherosclerotic Heart Disease: No Peripheral Vascular Disease: No Hypercholesterolemia: No Aneurysm: No Congestive Heart Failure: No Congenital Heart Disease: No Valvular Heart Disease: No Rheumatic Fever: No Cardiomyopathy: No Edema: No Pericarditis: No Cellulitis: No Deep Vein Thrombosis: No Hypertension: No Respiratory Problems Chronic Obstructive Pulmonary Disease (COPD): No Asthma: No Bronchitis: No Emphysema: No Pneumonia: No Pulmonary Fibrosis: No Tuberculosis: No Pulmonary Embolism: No Pulmonary Edema: No Respiratory Aspiration: No Orthopnea: No Hx Cough: No Cough: No Wheezing: No Chest Deformities: No Smoking: No Smoking Cessation Counseling: No Smoking Exposure: No Tobacco Use: No Clubbing: No Exposure to Respiratory Irritants: No Intubation: No Stomache/Intestinal Problems Liver Cancer: No Hepatitis: No Cirrhosis: No Pancreatic Cancer: No Pancreatitis: No Celiac Disease: No Gall Bladder Disease: No Gastrointestinal Bleed: No Colorectal Cancer: No Irritable Bowel: No Crohn's Disease: No Obstructive Bowel: No Hiatal Hernia: No Hemorrhoids: No Gastroesophageal Reflux Disease: No Genital/Urinary Problems Renal Disease: No Kidney Stones: No Polycystic Kidney Disease: No Neurogenic Bladder: No Inguinal Hernia: No Dialysis: No Prostate Cancer: No Benign Prostatic Hyperplasia: No Reproductive Problems Breast Cancer: No Endometriosis: No Fibroids: No Genital Herpes: No Gonorrhea: No Pelvic Inflammatory Disease: No Polycystic Ovarian Syndrome: No Previous Pregnancies: No Syphilis: No Testicular Cancer: No Uterine Prolapse: No Musculoskeletal Problems Muscular Dystrophy: No Myasthenia Gravis: No Marfan's Syndrome: No Bone Cancer: No Arthritis: No Rheumatoid Arthritis: No Osteoporosis: No Degenerative Disk Disease: No Gout: No Head,Eye,Nose,Throat Problems Cataracts: No Glaucoma: No Blind: No Retinal Detachment: No Macular Degeneration: No Chronic Ear Infections: No Deafness: No Eye Prosthesis: No Endocrine Problems Diabetes Mellitus Type 1: No Diabetes Mellitus Type 2: No Yolanda's Syndrome: No [place]'s Disease: No Thyroid Cancer: No Blood Problems Anemia: No Leukemia: No Hemophilia: No Thalassemia: No Sickle Cell Disease: No Clotting Problems: No Psychologic Problems Schizophrenia: No Recreational Drug Use: No Bipolar Disorder: No Depression: No Anxiety: No Behavior Problems: No Self-Mutilation: No Attention Deficit Disorder: No Attention Deficit Hyperactivity Disorder: No Depression: No Post Traumatic Stress Disorder: No Eating Disorder: No Other Problems Hospitalization: No Down Syndrome: No Autism: No Developmental Delay: No Cosmetic Surgery: No Communicable Disease: No Cancer: No Lung Cancer: No Ovarian Cancer: No Surgical History Angioplasty: No Appendectomy: No Bariatric Surgery: No History of Present Illness HPI Narrative 24yo is presenting for a routine visit @38w1d. The patient denies any current problems, headaches, or abdominal pain. The fetus is noted to be active. No CTX/LOF/VB, reports good FM+ Diagnostic Test Results and Labs: - Blood group: O-positive - RPR: non-reactive - Hepatitis B: negative - HIV: negative - Gonorrhea and chlamydia: negative - One-hour glucose tolerance: 82 (performed on 03-16-2024) - Cystic fibrosis testing: negative - NITD: negative - Ultrasound (05-02-2024): Confirmed gestational age of 19 weeks and 6 days, estimated due date of 4-16-2025 - heart rate: 145 bpm Review of Systems Review of Systems Systems Reviewed: All systems reviewed, normal except as documented Visit EVI Calculator Estimated Delivery Date Method Current WG Current Estimate 09/20/24 Ultrasound #1 39w 2d Other Estimates 10/01/24 LMP (Uncertain) 37w 5d Initial Weight: Not Recorded Date -?-?-?-?-?-?-?-?-?-?-?-?- EGA Weight Edema CTX Effacement BP Fundal ht Pres Dilation Effacement Station Visit Note Alb Glu FHR Mov 08/02/24 -?-?-?-?-?-?-?-?-?-?-?-?- 33w 0d 58.74 kg 149/88 145 08/15/24 -?-?-?-?-?-?-?-?-?-?-?-?- 34w 6d 59.08 kg 127/73 150 08/21/24 -?-?-?-?-?-?-?-?-?-?-?-?- 35w 5d 59.421 kg 121/71 135 09/07/24 -?-?-?-?-?-?-?-?-?-?-?-?- 38w 1d 61.008 kg 121/76 No C TX/LOF/VB, reports good FM+. GBS neg. 1w. Exam General Limitations: no limitations General Appearance: alert, in no apparent distress, comfortable, cooperative, healthy appearing, well developed and well groomed Head Head exam: atraumatic, normocephalic and normal inspection Abdominal Abdominal exam: Present soft and normal bowel sounds Psych Psychiatric exam: Present normal affect and normal mood Assessment & Plan Diagnosis / Problem List (1) Normal first with uncertain date of last menstrual period in third trimester, antepartum: Status: Acute Plan Group B Streptococcus (GBS) screening neg heart rate was assessed and found to be 145 bpm, which is within normal range. The patient reports no headaches or abdominal pain. - Follow-up appointment scheduled in one week - Continue monitoring well-being and maternal symptoms Office Procedures OB Clinic LOC & Office Proc's Nursing/Assessment Patient Status: Established Patient OB Clinic Nursing Assessment: BP Monitoring, Medication Reconciliation, Update PMH in EMR and Vital Signs OB Clinic Coordination of Care: Consent,records obtained, informed consent, Education Simp Pt/Fam and Staff clarify orders Special Needs: Heart tones Established Patient Charge Established Patient Point Assignment: 105 Established Patient Point Charge: EP Level 3 (80-115)
[2024-09-07 13:39] VITALS: BP 121/76; PULSE 86; RESP 18; TEMP 35.7; O2SAT 98; BMI 25.7
== END 2024-09-07 14:25 | disposition home or self-care (01) ==
LOC: HODSOBC 13:32
PROVIDERS: PCP Obstetrics & Gynecology; Referring Provider Obstetrics & Gynecology; Supervising Provider Obstetrics & Gynecology; Visit Provider Obstetrics & Gynecology
DX: Z34.93 Encounter for supervision of normal pregnancy, unspecified, third trimester (principal); Z3A.38 38 weeks gestation of pregnancy
CPT/HCPCS: 99213; G0463

== ENCOUNTER 2024-09-11 09:28 | Outpatient (AMB) | payer MEDICAID, SELFPAY ==
--- NOTE | 2024-09-11 09:38 | OBCLNT_ITS ---
Vital Signs 09/11/24 09:39 Height 1.54 m Height Method Stated Weight 62.851 kg Weight Measurement Method Standing Scale BMI 26.4 BP 129/80 Blood Pressure Source Automatic Cuff Blood Pressure Location Left Upper Arm Position Sitting Respiration 16 Pulse 99 Pulse Source Monitor Temp 96 F L Temp Source Oral Pulse Oximetry (%) 99 Oxygen Delivery Method Room Air Allergies/Home Meds Allergies & Medications Allergies No Known Allergies Allergy (Verified 09/19/24 11:48) Medication Reconciliation No Known Home Medications 08/02/24 [History Confirmed 09/19/24] Intake Visit Data Collection New Patient or Established: Established Patient (seen at [facility] within 3 years) Reason for Visit:: OBC Seen by Clinical Staff ONLY (RN/MA): No Die Repairer Trimmer Dies Required: Yes Die Repairer Trimmer Dies's name/title: TEE WHITAKER / [employer]DER [employer] Do You Feel Safe at Home: Yes Authorities Contacted: N/A PCP or OBGYN visit in last 3 months: Yes Date of Last PCP or OBGYN visit: 09/07/24 Hx Now: Yes Are you currently on any form of Control: No Pain Present Currently: No Pain Scale Used: Jones-Castro/Numerical Pain scale:: 0 Smoking Status Smoking Status: Never smoker Questionnaires Covid-19 Vaccine Questionnaire Has patient been vacinated for Covid-19 Have you been vacinated for Covid-19: Yes PHQ-9 PHQ-2 Over the last 2 weeks, how often have you been bothered by any of the following problems? 1. Little interest or pleasure in doing things: not at all 2. Feeling down, depressed, or hopeless: not at all Total score: 0 PHQ-9 3. Trouble falling or staying asleep, or sleeping too much: Not at all 4. Feeling tired or having little energy: Not at all 5. Poor appetite or overeating: Not at all 6. Feeling bad about yourself - or that you are a failure or have let yourself or your family down: Not at all 7. Trouble concentrating on things, such as reading the newspaper or watching television: Not at all 8. Moving or speaking so slowly that other people could have noticed? - Or the opposite - being so fidgety or restless that you have been moving around a lot more than usual: not at all 9. Thoughts that you would be better off or of hurting yourself in some way: Not at all Total score: 0 If you checked off any problems, how difficult have these problems made it for you to do your work, take care of things at home, or get along with other people?: not difficult at all Source: Developed by Drs. Shalom Espinal, Gena Alvarado, Romulo Hauser and colleagues, with an educational rohith from [employer]. Depression screen completed yes Social History Living Situation History Marital Status: Lives With: Family Housing: House Tobacco History Smoking Status: Never smoker Second Hand Smoke Exposure: No Alcohol History Alcohol Intake: Never Substance Use History Substance Use: NONE Domestic Abuse History Do You Feel Safe at Home: Yes Past Medical History Past Medical History Have you ever been diagnosed with any of the following: Neurological Problems Cerebrovascular Accident (CVA): No Transient Ischemic Attacks (TIA): No Dementia: No Alzheimer's Disease: No Parkinson's Disease: No Brain Tumor: No Meningitis: No Seizures: No Epilepsy: No Multiple Sclerosis: No Cerebral Palsy: No Amyotrophic Lateral Sclerosis (ALS/Lilibeth Gehrig's): No Guillain-[place] Syndrome: No Spina Bifida: No Paralysis: No Peripheral Neuropathy: No Mancilla's Palsy: No Subdural Hematoma: No Migraine: No Head Trauma: No Spinal Cord Injury: No Traumatic Brain Injury: No Cardiology Problems Myocardial Infarction: No Cardiac Arrhythmia: No Atrial Fibrillation: No Angina: No Heart Murmur: No Coronary Artery Disease: No Atherosclerotic Heart Disease: No Peripheral Vascular Disease: No Hypercholesterolemia: No Aneurysm: No Congestive Heart Failure: No Congenital Heart Disease: No Valvular Heart Disease: No Rheumatic Fever: No Cardiomyopathy: No Edema: No Pericarditis: No Cellulitis: No Deep Vein Thrombosis: No Hypertension: No Respiratory Problems Chronic Obstructive Pulmonary Disease (COPD): No Asthma: No Bronchitis: No Emphysema: No Pneumonia: No Pulmonary Fibrosis: No Tuberculosis: No Pulmonary Embolism: No Pulmonary Edema: No Respiratory Aspiration: No Orthopnea: No Hx Cough: No Cough: No Wheezing: No Chest Deformities: No Smoking: No Smoking Cessation Counseling: No Smoking Exposure: No Tobacco Use: No Clubbing: No Exposure to Respiratory Irritants: No Intubation: No Stomache/Intestinal Problems Liver Cancer: No Hepatitis: No Cirrhosis: No Pancreatic Cancer: No Pancreatitis: No Celiac Disease: No Gall Bladder Disease: No Gastrointestinal Bleed: No Colorectal Cancer: No Irritable Bowel: No Crohn's Disease: No Obstructive Bowel: No Hiatal Hernia: No Hemorrhoids: No Gastroesophageal Reflux Disease: No Genital/Urinary Problems Renal Disease: No Kidney Stones: No Polycystic Kidney Disease: No Neurogenic Bladder: No Inguinal Hernia: No Dialysis: No Prostate Cancer: No Benign Prostatic Hyperplasia: No Reproductive Problems Breast Cancer: No Endometriosis: No Fibroids: No Genital Herpes: No Gonorrhea: No Pelvic Inflammatory Disease: No Polycystic Ovarian Syndrome: No Previous Pregnancies: No Syphilis: No Testicular Cancer: No Uterine Prolapse: No Musculoskeletal Problems Muscular Dystrophy: No Myasthenia Gravis: No Marfan's Syndrome: No Bone Cancer: No Arthritis: No Rheumatoid Arthritis: No Osteoporosis: No Degenerative Disk Disease: No Gout: No Head,Eye,Nose,Throat Problems Cataracts: No Glaucoma: No Blind: No Retinal Detachment: No Macular Degeneration: No Chronic Ear Infections: No Deafness: No Eye Prosthesis: No Endocrine Problems Diabetes Mellitus Type 1: No Diabetes Mellitus Type 2: No [place]'s Syndrome: No [place]'s Disease: No Thyroid Cancer: No Blood Problems Anemia: No Leukemia: No Hemophilia: No Thalassemia: No Sickle Cell Disease: No Clotting Problems: No Psychologic Problems Schizophrenia: No Recreational Drug Use: No Bipolar Disorder: No Depression: No Anxiety: No Behavior Problems: No Self-Mutilation: No Attention Deficit Disorder: No Attention Deficit Hyperactivity Disorder: No Depression: No Post Traumatic Stress Disorder: No Eating Disorder: No Other Problems Hospitalization: No Down Syndrome: No Autism: No Developmental Delay: No Cosmetic Surgery: No Communicable Disease: No Cancer: No Lung Cancer: No Ovarian Cancer: No Surgical History Angioplasty: No Appendectomy: No Bariatric Surgery: No History of Present Illness HPI Steve Elizabteh Foss, a 40-5/7 woman (), presents for a routine visit. This is her first , and she has not yet given . The patient is currently at term and approaching her due date. She has been scheduled for induction of labor on 09-30-2024, when she will be 41 weeks and 3 days gestation. This routine visit serves to assess the progress of her and prepare for the upcoming induction. No CTX/LOF/VB, reports good FM+ Review of Systems Review of Systems Systems Reviewed: All systems reviewed, normal except as documented Visit EVI Calculator Estimated Delivery Date Method Current WG Current Estimate 09/20/24 Ultrasound #1 40w 2d Other Estimates 10/01/24 LMP (Uncertain) 38w 5d Initial Weight: Not Recorded Date -?-?-?-?-?-?-?-?-?-?-?-?- EGA Weight Edema CTX Effacement BP Fundal ht Pres Dilation Effacement Station Visit Note Alb Glu FHR Mov 08/02/24 -?-?-?-?-?-?-?-?-?-?-?-?- 33w 0d 58.74 kg 149/88 145 08/15/24 -?-?-?-?-?-?-?-?-?-?-?-?- 34w 6d 59.08 kg 127/73 150 08/21/24 -?-?-?-?-?-?-?-?-?-?-?-?- 35w 5d 59.421 kg 121/71 135 09/07/24 -?-?-?-?-?-?-?-?-?-?-?-?- 38w 1d 61.008 kg 121/76 No C TX/LOF/VB, reports good FM+. GBS neg. 1w. 09/11/24 -?-?-?-?-?-?-?-?-?-?-?-?- 38w 5d 62.851 kg 129/80 No C TX/LOF/VB, reports good FM+. GBS neg. 1w. 145 active 09/19/24 -?-?-?-?-?-?-?-?-?-?-?-?- 39w 6d 62.142 kg 20 133/86 1 20 -4 39-week 6-day 1 para 0 for routine visit no contractions/leakage of fluid/vaginal bleeding, good movements cervical exam 1 cm, membranes swiped, patient is scheduled for IOL on 09/30/2024 at 41 weeks and 3 days but I anticipate her going into labor soon 145 Exam General Limitations: no limitations General Appearance: alert, in no apparent distress, comfortable, cooperative, healthy appearing, well developed and well groomed Head Head exam: atraumatic, normocephalic and normal inspection Chest Chest inspection: Present normal inspection and symmetric chest wall rise Abdominal Abdominal exam: Present soft and normal bowel sounds Psych Psychiatric exam: Present normal affect and normal mood Skin Skin exam: Present warm, dry, intact and normal color Assessment & Plan Diagnosis / Problem List (1) Normal first with uncertain date of last menstrual period in third trimester, antepartum: Status: Acute Plan appears to be progressing normally, as evidenced by the scheduled induction of labor at 41 weeks and 3 days, which suggests no immediate concerns requiring earlier intervention. Plan: - Scheduled induction of labor on 09-30-2024 at 41 weeks and 3 days gestation. Office Procedures OB Clinic LOC & Office Proc's Nursing/Assessment Patient Status: Established Patient OB Clinic Nursing Assessment: BP Monitoring, Medication Reconciliation, Update PMH in EMR and Vital Signs OB Clinic Coordination of Care: Consent,records obtained, informed consent, Education Simp Pt/Fam and Staff clarify orders Special Needs: Heart tones Established Patient Charge Established Patient Point Assignment: 105 Established Patient Point Charge: EP Level 3 (80-115)
[2024-09-11 09:39] VITALS: BP 129/80; PULSE 99; RESP 16; TEMP 35.5; O2SAT 99; BMI 26.4
== END 2024-09-11 09:47 | disposition home or self-care (01) ==
LOC: HODSOBC 09:28
PROVIDERS: PCP Obstetrics & Gynecology; Referring Provider Obstetrics & Gynecology; Supervising Provider Obstetrics & Gynecology; Visit Provider Obstetrics & Gynecology
DX: Z34.03 Encounter for supervision of normal first pregnancy, third trimester (principal); Z3A.38 38 weeks gestation of pregnancy
CPT/HCPCS: 99213; G0463

== ENCOUNTER 2024-09-19 11:16 | Outpatient (AMB) | payer MEDICAID, SELFPAY ==
--- NOTE | 2024-09-19 11:46 | AMB.OBVISIT ---
Vital Signs 09/19/24 11:47 Height 1.54 m Height Method Stated Weight 62.142 kg Weight Measurement Method Standing Scale BMI 26.2 BP 133/86 H Blood Pressure Source Automatic Cuff Blood Pressure Location Left Upper Arm Position Sitting Respiration 16 Pulse 84 Pulse Source Monitor Temp 97.3 F Temp Source Oral Pulse Oximetry (%) 97 Oxygen Delivery Method Room Air Allergies/Home Meds Allergies & Medications Allergies No Known Allergies Allergy (Verified 09/19/24 11:48) Medication Reconciliation No Known Home Medications 08/02/24 [History Confirmed 09/19/24] Intake Visit Data Collection New Patient or Established: Established Patient (seen at [facility] within 3 years) Reason for Visit:: CARE Consent obtained for Telemed Visit: No Seen by Clinical Staff ONLY (RN/MA): No Tuber Helper Required: Yes Tuber Helper's name/title: TEE WHITAKER Do You Feel Safe at Home: Yes Authorities Contacted: N/A PCP or OBGYN visit in last 3 months: Yes Hx Now: Yes Are you currently on any form of Control: No Pain Present Currently: Yes Pain Location: Abdomen (LOWER ) Pain Scale Used: Jones-Castro/Numerical Pain scale:: 3 Smoking Status Smoking Status: Never smoker Questionnaires Covid-19 Vaccine Questionnaire Has patient been vacinated for Covid-19 Have you been vacinated for Covid-19: Yes PHQ-9 PHQ-2 Over the last 2 weeks, how often have you been bothered by any of the following problems? 1. Little interest or pleasure in doing things: not at all 2. Feeling down, depressed, or hopeless: not at all Total score: 0 PHQ-9 3. Trouble falling or staying asleep, or sleeping too much: Not at all 4. Feeling tired or having little energy: Not at all 5. Poor appetite or overeating: Not at all 6. Feeling bad about yourself - or that you are a failure or have let yourself or your family down: Not at all 7. Trouble concentrating on things, such as reading the newspaper or watching television: Not at all 8. Moving or speaking so slowly that other people could have noticed? - Or the opposite - being so fidgety or restless that you have been moving around a lot more than usual: not at all 9. Thoughts that you would be better off or of hurting yourself in some way: Not at all Total score: 0 Source: Developed by Drs. Shalom Espinal, Gena Alvarado, Romulo Hauser and colleagues, with an educational rohith from [employer]. Depression screen completed yes Social History Living Situation History Marital Status: Single Lives With: Family Housing: House Tobacco History Smoking Status: Never smoker Second Hand Smoke Exposure: No Alcohol History Alcohol Intake: Never Substance Use History Substance Use: NONE Domestic Abuse History Do You Feel Safe at Home: Yes Past Medical History Past Medical History Have you ever been diagnosed with any of the following: Neurological Problems Cerebrovascular Accident (CVA): No Transient Ischemic Attacks (TIA): No Dementia: No Alzheimer's Disease: No Parkinson's Disease: No Brain Tumor: No Meningitis: No Seizures: No Epilepsy: No Multiple Sclerosis: No Cerebral Palsy: No Amyotrophic Lateral Sclerosis (ALS/Lilibeth Gehrig's): No Guillain-Bangor Syndrome: No Spina Bifida: No Paralysis: No Peripheral Neuropathy: No Mancilla's Palsy: No Subdural Hematoma: No Migraine: No Head Trauma: No Spinal Cord Injury: No Traumatic Brain Injury: No Cardiology Problems Myocardial Infarction: No Cardiac Arrhythmia: No Atrial Fibrillation: No Angina: No Heart Murmur: No Coronary Artery Disease: No Atherosclerotic Heart Disease: No Peripheral Vascular Disease: No Hypercholesterolemia: No Aneurysm: No Congestive Heart Failure: No Congenital Heart Disease: No Valvular Heart Disease: No Rheumatic Fever: No Cardiomyopathy: No Edema: No Pericarditis: No Cellulitis: No Deep Vein Thrombosis: No Hypertension: No Respiratory Problems Chronic Obstructive Pulmonary Disease (COPD): No Asthma: No Bronchitis: No Emphysema: No Pneumonia: No Pulmonary Fibrosis: No Tuberculosis: No Pulmonary Embolism: No Pulmonary Edema: No Respiratory Aspiration: No Orthopnea: No Hx Cough: No Cough: No Wheezing: No Chest Deformities: No Smoking: No Smoking Cessation Counseling: No Smoking Exposure: No Tobacco Use: No Clubbing: No Exposure to Respiratory Irritants: No Intubation: No Stomache/Intestinal Problems Liver Cancer: No Hepatitis: No Cirrhosis: No Pancreatic Cancer: No Pancreatitis: No Celiac Disease: No Gall Bladder Disease: No Gastrointestinal Bleed: No Colorectal Cancer: No Irritable Bowel: No Crohn's Disease: No Obstructive Bowel: No Hiatal Hernia: No Hemorrhoids: No Gastroesophageal Reflux Disease: No Genital/Urinary Problems Renal Disease: No Kidney Stones: No Polycystic Kidney Disease: No Neurogenic Bladder: No Inguinal Hernia: No Dialysis: No Reproductive Problems Breast Cancer: No Endometriosis: No Fibroids: No Genital Herpes: No Gonorrhea: No Pelvic Inflammatory Disease: No Polycystic Ovarian Syndrome: No Previous Pregnancies: No Syphilis: No Uterine Prolapse: No Musculoskeletal Problems Muscular Dystrophy: No Myasthenia Gravis: No Marfan's Syndrome: No Bone Cancer: No Arthritis: No Rheumatoid Arthritis: No Osteoporosis: No Degenerative Disk Disease: No Gout: No Head,Eye,Nose,Throat Problems Cataracts: No Glaucoma: No Blind: No Retinal Detachment: No Macular Degeneration: No Chronic Ear Infections: No Deafness: No Eye Prosthesis: No Endocrine Problems Diabetes Mellitus Type 1: No Diabetes Mellitus Type 2: No Rye's Syndrome: No [place]'s Disease: No Thyroid Cancer: No Blood Problems Anemia: No Leukemia: No Hemophilia: No Thalassemia: No Sickle Cell Disease: No Clotting Problems: No Psychologic Problems Schizophrenia: No Recreational Drug Use: No Bipolar Disorder: No Depression: No Anxiety: No Behavior Problems: No Self-Mutilation: No Attention Deficit Disorder: No Attention Deficit Hyperactivity Disorder: No Depression: No Post Traumatic Stress Disorder: No Eating Disorder: No Other Problems Hospitalization: No Down Syndrome: No Autism: No Developmental Delay: No Cosmetic Surgery: No Communicable Disease: No Cancer: No Lung Cancer: No Ovarian Cancer: No Surgical History Angioplasty: No Appendectomy: No Bariatric Surgery: No History of Present Illness HPI Steve Elizabeth Foss, a 39-week and 6-day woman (), presents for a routine visit. This is her first , and she has not yet given . The patient is currently at term and approaching her due date. She has been scheduled for induction of labor on 09-30-2024, when she will be 41 weeks and 3 days gestation. This routine visit serves to assess the progress of her and prepare for the upcoming induction. No CTX/LOF/VB, reports good FM+ Review of Systems Review of Systems Systems Reviewed: All systems reviewed, normal except as documented Visit OB Visit Log OB Flowsheet Initial Weight: Not Recorded Date <del>?</del> EGA Weight Edema CTX Effacement BP Fundal ht Pres Dilation Effacement Station Visit Note Alb Glu FHR Mov 08/02/24 <del>?</del> 33w 0d 58.74 kg 149/88 145 08/15/24 <del>?</del> 34w 6d 59.08 kg 127/73 150 08/21/24 <del>?</del> 35w 5d 59.421 kg 121/71 135 09/07/24 <del>?</del> 38w 1d 61.008 kg 121/76 No CTX/LOF/VB, reports good FM+. GBS neg. 1w. 09/19/24 <del>?</del> 39w 6d 62.142 kg 20 133/86 1 20 -4 39-week 6-day 1 para 0 for routine visit no contractions/leakage of fluid/vaginal bleeding, good movements cervical exam 1 cm, membranes swiped, patient is scheduled for IOL on 09/30/2024 at 41 weeks and 3 days but I anticipate her going into labor soon 145 EVI Calculator Estimated Delivery Date Method Current WG Current Estimate 09/20/24 Ultrasound #1 40w 1d Other Estimates 10/01/24 LMP (Uncertain) 38w 4d Exam General Limitations: no limitations General Appearance: alert, in no apparent distress, comfortable, cooperative, healthy appearing, well developed and well groomed Chest Chest inspection: Present normal inspection and symmetric chest wall rise Abdominal Abdominal exam: Present soft and normal bowel sounds Skin Skin exam: Present warm, dry, intact and normal color Assessment & Plan Diagnosis / Problem List (1) Normal first with uncertain date of last menstrual period in third trimester, antepartum: Status: Acute Plan Problem-Based Assessment and Plan Elizabeth Foss, 1 para 0, presents for visit at 39 weeks and 6 days gestation. , 39 weeks and 6 days gestation Assessment: Patient is a primigravida at 39 weeks and 6 days gestation presenting for routine visit. appears to be progressing normally, as evidenced by the scheduled induction of labor at 41 weeks and 3 days, which suggests no immediate concerns requiring earlier intervention. Plan: - Scheduled induction of labor on 09-30-2024 at 41 weeks and 3 days gestation. Pt Education Educated the patient on labor signs, including regular contractions, lower back pain, and changes in vaginal discharge. Advised avoiding heavy lifting and getting adequate rest. Instructed to contact the office immediately if any signs occur. Discussed the importance of a balanced diet rich in folic acid, iron, and calcium, and provided a list of recommended and to-avoid foods. Emphasized avoiding high-sugar foods to reduce gestational diabetes risk. Encouraged hydration and frequent, small meals for energy. Office Procedures OB Clinic LOC & Office Proc's Nursing/Assessment Patient Status: Established Patient OB Clinic Nursing Assessment: Medication Reconciliation, Update PMH in EMR and Vital Signs OB Clinic Coordination of Care: Complex Care and Chronic Disease 1-5, Consent,records obtained, informed consent, Education Simp Pt/Fam and Staff clarify orders Special Needs: Heart tones Miscellaneous Interventions: Pelvic no cultures Established Patient Charge Established Patient Point Assignment: 125 Established Patient Point Charge: EP Level 4 (120-155)
[2024-09-19 11:47] VITALS: BP 133/86; PULSE 84; RESP 16; TEMP 36.3; O2SAT 97; BMI 26.2
== END 2024-09-19 12:00 | disposition home or self-care (01) ==
LOC: HODSOBC 11:16
PROVIDERS: PCP Obstetrics & Gynecology; Referring Provider Obstetrics & Gynecology; Supervising Provider Obstetrics & Gynecology; Visit Provider Obstetrics & Gynecology
DX: Z34.03 Encounter for supervision of normal first pregnancy, third trimester (principal); Z3A.39 39 weeks gestation of pregnancy
CPT/HCPCS: 99214; G0463

== ENCOUNTER 2024-09-22 19:48 | Observation (INO) | payer MEDICAID, SELFPAY ==
[2024-09-22] VITALS (8 sets, daily range): BP systolic 105–160; BP diastolic 57–88; PULSE 76–116; RESP 19–100; TEMP 37.2; BMI 26.9
== END 2024-09-22 21:25 | disposition home or self-care (01) ==
PROVIDERS: Admitting Provider Obstetrics & Gynecology; Visit Provider Obstetrics & Gynecology
DX: O47.1 False labor at or after 37 completed weeks of gestation (principal); Z3A.40 40 weeks gestation of pregnancy
CPT/HCPCS: 59025; 59899

== ENCOUNTER 2024-09-23 03:10 | Observation (INO) | payer MEDICAID, SELFPAY ==
[2024-09-23] VITALS (8 sets, daily range): BP systolic 115–152; BP diastolic 61–99; PULSE 67–77; RESP 19–99; TEMP 37.2; O2SAT 98; BMI 26.4
[2024-09-23] MEDS: hydrOXYzine HCL 25 MG TABLET 50 MG PO (05:23)
== END 2024-09-23 05:30 | disposition home or self-care (01) ==
PROVIDERS: Admitting Provider Obstetrics & Gynecology; Visit Provider Obstetrics & Gynecology
DX: O47.1 False labor at or after 37 completed weeks of gestation (principal); Z3A.40 40 weeks gestation of pregnancy
CPT/HCPCS: 59025; 59899; A9270

== ENCOUNTER 2024-09-23 10:54 | Inpatient (IN) | payer MEDICAID, SELFPAY ==
[2024-09-23] VITALS (146 sets, daily range): BP systolic 0–151; BP diastolic 0–93; PULSE 74–187; RESP 18–99; TEMP 36.9–37.3; O2SAT 87–100; BMI 27.6
[2024-09-23 12:59] LABS: ROM Kit Lot # 57807112; ROM Swab Mixed By: JL; Rupture of Fetal Membranes Positive (Negative); Swb Mxed in Solvent 1 min? Yes
[2024-09-23 13:33] LABS: Collection Type, Urine Clean Catch
[2024-09-23 13:35] LABS: Hematocrit 34.1 % (36.0-46.0); Hemoglobin 11.8 g/dL (12.0-16.0); Mean Corpuscular Volume 81 fL (80-100); Red Blood Count 4.19 Miln/mm3 (4.00-5.20); White Blood Count 12.3 Thou/mm3 (3.6-11.0)
[2024-09-23 13:36] LABS: Basophils % (Auto) 0 % (0-2.5); Eosinophils % (Auto) 0 % (0-10); Immature Granulocytes % (Auto) 1 % (0-0); Immature Granulocytes Auto 0.06 Thou/mm3 (0.00-0.00); Lymphocytes # (Auto) 0.7 Thou/mm3 (1.0-4.8); Lymphocytes % (Auto) 6 % (10-50); Mean Corpuscular HGB Conc 34.6 g/dl (31.0-37.0); Mean Corpuscular Hemoglobin 28.2 pg (25.0-35.0); Monocytes # (Auto) 0.5 Thou/mm3 (0.0-0.8); Monocytes % (Auto) 4 % (0-12); Neutrophils # (Auto) 11.1 Thou/mm3 (1.8-7.7); Neutrophils % (Auto) 90 % (37-80); Nucleated Red Blood Cell % 0 /100 WBC (0); Platelet Count 229 Thou/mm3 (140-440); RDW Standard Deviation 41.4 fL (36.4-46.3)
--- NOTE | 2024-09-23 13:46 | ESHP_ITS ---
Documentation for date of: 09/23/24 OB Labor/Induct. HPI History of Present Illness Chief complaint: Labor pains : 1 Para: 0 History of sections: No Date of last menstrual period: 12/26/23 EVI: 09/20/24 Gestational Age (weeks): 40 Gestational Age (days): 3 Gestational age based on last menstrual period: 38 History of present illness: 24-year-old 1 para 0 with intrauterine at 40 weeks and 3 days x 19w6d weeks sonogram which was are not consistent with her LMP. Who presents to labor and delivery for the third time in 24 hours complaining of labor pains. Initially on presentation she was 2 cm dilated and she ambulated for an hour and then underwent spontaneous rupture of membranes clear fluid. Patient was noted to have mildly elevated blood pressures. She denies any headache, change in vision, right upper quadrant pain or swelling in her face and hands. She denies any history of hypertension or taking antihypertensives during her or before conception. She reports normal movement she denies any bleeding. Her early care was with an outside clinic then she transferred to the [facility] clinic where she has been seeing Dr. Castaneda. History of Present Dating criteria: based on 2nd trimester US only Adequate Care: Yes Obstetrical complications: gestational hypertension Medical complications: none Labs Labs: Negative: Hepatitis B, HIV, Chlamydia, Gonorrhea and Group Beta Strep Review of Systems Review of Systems Narrative Review of Systems: She denies any chest pain palpitations cough fever shortness of breath or lower extremity pain Past Medical History Family History OTHER FAMILY HX: See record Surgical History SURGICAL: Negative Section Social History SOCIAL: Denies any alcohol drug use or smoking Meds Home Medications and Allergies Home Medications ?Medication ?Instructions ?Recorded ?Confirmed ?Type vits no.126-ferrous fum 1 tab PO .qd 09/22/24 09/23/24 History 28 mg iron-folic acid 800 mcg tablet (Classic ) Allergies Allergy/AdvReac Type Severity Reaction Status Date / Time No Known Allergies Allergy Verified 09/23/24 03:25 OB Exam Physical Exam Vital signs: Temp Pulse Resp BP 99.0 F 83 18 145/86 H 09/23/24 11:12 09/23/24 12:52 09/23/24 11:12 09/23/24 12:52 Routine HEENT Exam Comments: Oropharynx and sclera clear Routine Respiratory Exam Comments: Lungs clear to auscultation bilaterally Routine Cardiovascular Exam Comments: Regular rate and rhythm Routine Abdominal Exam Comments: Gravid with estimated weight 8 pounds Routine Exam Comments: No genital lesions per RN Detailed Labor and Delivery Exam Comments: See RN exam Routine Extremities Exam Comments: Nontender Routine Skin Exam Comments: No gross rashes or lesions OB Results Labs 09/23/24 13:20 09/23/24 13:20 Labs: Short CBC 09/23/24 Range/Units 13:20 WBC 12.3 H (3.6-11.0) Thou/mm3 Hgb 11.8 L (12.0-16.0) g/dL Hct 34.1 L (36.0-46.0) % Plt Count 229 (140-440) Thou/mm3 Impressions Impression: Intrauterine at 40 weeks 3 days gestation Gestational hypertension versus preeclampsia without severe features Early labor Spontaneous rupture of membranes Anticipate spontaneous vaginal delivery, informed consent was obtained. The patient was made aware of the risks complications alternatives and benefits of operative vaginal delivery and delivery and agrees with these modes of delivery if indicated PI labs
[2024-09-23 13:53] LABS: Alanine Aminotransferase 20 U/L (10-49); Albumin, Serum 3.9 gm/dL (3.5-5.0); Albumin/Globulin Ratio 1.3 (1.2-2.2); Alkaline Phosphatase 222 U/L (46-116); Anion Gap 8 (7-16); Aspartate Amino Transferase 22 U/L (0-34); BUN/Creatinine Ratio 12 Ratio (12-20); Bilirubin,Total 0.3 mg/dL (0.3-1.2); Blood Urea Nitrogen 6 mg/dL (9-23); Calcium (Corrected) 9.1 mg/dL (8.5-10.1); Carbon Dioxide 21.6 mMol/L (20.0-31.0); Chloride 107 mMol/L (98-107); Creatinine (Component) 0.5 mg/dL (0.6-1.3); Estimated Creatinine Clearance 141.5 mL/min (>60); Glucose 116 mg/dL (74-106); Osmolality,Calculated 272 (275-295); Sodium 137 mMol/L (136-145); Total Protein 6.9 gm/dL (5.7-8.2); Uric Acid 3.9 mg/dL (3.1-7.8); eGFR > 60 See Note
[2024-09-23 14:00] LABS: Bilirubin,Urine Negative (Negative); Blood,Urine Negative (Negative); Color,Urine Yellow (Lt Yel-Yel); Glucose, Urine Negative (Negative); Ketones,Urine Negative (Negative); Leukocyte Esterase,Urine Negative (Negative); Nitrite,Urine Negative (Negative); Protein,Urine Trace (Neg - Trace); RBC,Urine 2 /hpf (0-3); Specific Gravity,Urine 1.028 (1.001-1.035); Squamous Epithelial Cell,Urine 3 /hpf (0-5); Urobilinogen,Urine Negative mg/dL (0.0-1.0); WBC,Urine 2 /hpf (0-5)
--- NOTE | 2024-09-23 14:00 | PD.LDDS ---
DS: Providers Provider Date of admission: 09/23/24 13:13 Primary care physician: Physician No Primary/Family Admitting Provider: Julien Bobby MD Attending Provider on Admission: Julien Bobby MD Attending Provider on DC: Julien Bobby MD Discharging Provider: Julien Bobby MD DS: Diagnosis Problem List Completed Was Problem List Reviewed/Reconciled?: Yes Summary/Hosp Course Brief History: 24-year-old 1 para 0 with intrauterine at 40 weeks and 3 days x 19w6d weeks sonogram which was are not consistent with her LMP. Who presents to labor and delivery for the third time in 24 hours complaining of labor pains. Initially on presentation she was 2 cm dilated and she ambulated for an hour and then underwent spontaneous rupture of membranes clear fluid. Patient was noted to have mildly elevated blood pressures. She denies any headache, change in vision, right upper quadrant pain or swelling in her face and hands. She denies any history of hypertension or taking antihypertensives during her or before conception. She reports normal movement she denies any bleeding. Her early care was with an outside clinic then she transferred to the [facility] clinic where she has been seeing Dr. Castaneda. Peripartum Data Delivery Method: Operative Vaginal Delivery complications: none Time Spent with Patient Time attestation: Total time spent providing and/or coordinating discharge services: Exam Vital Signs Temp Pulse Resp BP Pulse Ox 99.0 F 83 18 145/86 H 99 09/23/24 11:12 09/23/24 12:52 09/23/24 11:12 09/23/24 12:52 09/23/24 13:57 Discharge Plan Plan Patient Disposition: HOME (Self Care) Patient condition on transfer: Stable Prescriptions/Referrals Prescriptions/Med Rec: New ibuprofen 600 mg tablet 600 mg PO Q6H PRN (Reason: pain) Qty: 30 0RF lanolin 50 % ointment 1 applic topical QID PRN (Reason: skin irritation) Qty: 15 3RF Continued Classic 28 mg iron- 800 mcg tablet 1 tab PO .qd Patient Comments: TAKE 1 TABLET BY MOUTH EVERY DAY Referrals: No Primary/Family,Physician [Primary Care Provider] - Patient/Caregiver Discharge Instructions Discharge Activity: activity as tolerated Other Discharge Activity Instructions:: Follow up with Dr Castaneda in 6 weeks. Print Language: Turkmen Stand Alone Forms: Bhavani Award Info., Patient Portal Info Letter Planned Discharge Date 09/25/24
[2024-09-23 14:10] LABS: Syphilis Nonreactive (Nonreactive)
[2024-09-23 14:11] LABS: Creatinine,Random Urine 130 mg/dL (30-125); Protein Total, Random Urine 28 mg/dL (1-14)
--- NOTE | 2024-09-23 14:12 | PD.LDPN ---
Documentation for date of: 09/23/24 OB Labor Progress Note Pain Control Comments: None Pelvic Exam Dilation (cm): 2 Effacement (%): 90 station: 0 Amniotic membrane status: Ruptured Contractions Contraction frequency: q 3-4 min Status status: Category l Assessment and Plan Comments: IUP 40w3d Early Labor SROM Gestational HTN v Preeclampsia without severe features Anticipate Labs pending.
[2024-09-23 14:34] LABS: Clarity,Urine Hazy (Clear/Hazy)
[2024-09-23 14:35] LABS: Fibrinogen 446 mg/dL (175-375); INR 0.9 (0.9-1.3); Partial Thromboplastin Time 23.8 Seconds (22.0-36.0)
[2024-09-23] MEDS: RINGERS LACTATED 1000 ML 1,000 ML 100 ML IV (15:37)
[2024-09-23] MEDS: fentaNYL CIT INJ 50 mCg/ML AMP 2ML 100 MCG IV ×2 (15:42→18:03)
[2024-09-23] MEDS: TRANEXAMIC ACID 1,000 MG IVPB 1,000 MG/100 ML BAG 200 MG IV (20:10)
[2024-09-23] MEDS: OXYTOCIN in NS 20 units 20 UNIT/1,000 ML BAG 125 UNIT IV (20:10)
--- NOTE | 2024-09-23 20:48 | PD.LDDELS ---
Vacuum Assisted Delivery General Patient Counseled by physician:: Yes Informed consent to patient:: Yes Estimated weight:: 8 lb Cervical dilation:: fully dilated station:: +3 position:: OA Molding:: No Caput:: No Vacuum Application Vacuum type:: Mityvac Vacuum application:: flexing median Total vacuum time (min):: 3 Maximum pressure (cm Hg):: 50 Cup Placement Flexion point identified:: Yes Cup approp. for head position:: Yes Maternal tissue excluded:: Yes Vacuum Procedure Number of pulls (contractions):: 2 Number of pop-offs:: 1 Recommended range maintained:: Yes Vacuum reduced between pulls:: Yes Advancement made each pull:: Yes Vacuum successful:: Yes Immediate Evaluation Immediate assessment:: no apparent injury Hand-off care to:: nursery nurse Additional Comments Additional comments: bradycardia to 80's not responding to intrauterine resuscitative measures and inadequate maternal expulsive effort were indications for vacuum application. Data (Bueno) Data Hx Section: No : 1 Para: 0 Term: 0 : 0 : 0 Delivery Data (Bueno) Labor Data ROM Date: 09/23/24 ROM Time: 12:30 Rupture Type: SROM Amniotic Fluid: Clear Delivery Data EDC: 09/20/24 EDC calculated by:: ultrasound Labor Onset Stage 1 Date: 09/23/24 Labor Onset Stage 1 Time: 18:10 Labor Onset Stage 2 Date: 09/23/24 Labor Onset Stage 2 Time: 19:50 Delivery Date: 09/23/24 Delivery Time: 20:00 Gestational age (weeks): 40 Gestational age (days): 3 Placenta Delivery Date: 09/23/24 Placenta Delivery Time: 20:09 Delivered by: Julien Bobby Delivery nurse: Chelsy Lord Other staff at delivery: Nurse Other staff at delivery: Nursery Nurse Other staff at delivery: Martha De Leon Delivery Method Delivery: Vaginal Delivery Type: Spontaneous Presentation: Vertex Position: OA Anesthesia Type Primary Anesthesia: Local Placenta Placenta Delivery: Spontaneous Placenta Cultures Obtained: No Placenta Sent for Examination: No Cord Sample: Cord Blood Obtained, Cord Gases Arterial and Cord Gases Venous Lacerations #1: Perineal: 2nd degree Vaginal: 2nd degree #3: Labial: 2nd degree bilateral Perineal repair Sutures used for repair: other EBL Estimated blood loss (ml): 400 Umbilical Cord Umbilical Vessels: 3 Nuchal Cord: None Body Cord: None Additional Procedures Vacuum assisted vaginal delivery (see details) Complications Complications: None Data (Bueno) Data Gender: Male Infant Weight Grams: 2545 1 Minute Total: 7 5 Minute Total: 7
[2024-09-23] MEDS: BENZO/LANO/ALOE (Dermoplast) 60 GM CAN 1 SPRAY TOP (20:55)
[2024-09-23] MEDS: IBUPROFEN TAB 400 MG TABLET 800 MG PO (21:00)
[2024-09-24] VITALS: BP 118/64; PULSE 100; RESP 17; TEMP 37.2; O2SAT 97
[2024-09-24 03:22] LABS: Basophils % (Auto) 0 % (0-2.5); Eosinophils % (Auto) 0 % (0-10); Hematocrit 27.8 % (36.0-46.0); Hemoglobin 9.5 g/dL (12.0-16.0); Immature Granulocytes % (Auto) 1 % (0-0); Immature Granulocytes Auto 0.07 Thou/mm3 (0.00-0.00); Lymphocytes # (Auto) 1.5 Thou/mm3 (1.0-4.8); Lymphocytes % (Auto) 10 % (10-50); Mean Corpuscular HGB Conc 34.2 g/dl (31.0-37.0); Mean Corpuscular Hemoglobin 28.3 pg (25.0-35.0); Mean Corpuscular Volume 83 fL (80-100); Monocytes # (Auto) 1.3 Thou/mm3 (0.0-0.8); Monocytes % (Auto) 9 % (0-12); Neutrophils # (Auto) 11.7 Thou/mm3 (1.8-7.7); Neutrophils % (Auto) 81 % (37-80); Nucleated Red Blood Cell % 0 /100 WBC (0); Platelet Count 185 Thou/mm3 (140-440); RDW Standard Deviation 43.5 fL (36.4-46.3); Red Blood Count 3.36 Miln/mm3 (4.00-5.20); White Blood Count 14.5 Thou/mm3 (3.6-11.0)
[2024-09-24 04:00] VITALS: BP 107/67; PULSE 90; RESP 16; TEMP 36.9; O2SAT 99
[2024-09-24] MEDS: ceFAZolin 2 GM in SODIUM CHLORIDE 0.9% 100 ML IV (06:43)
[2024-09-24 08:45] VITALS: BP 108/65; PULSE 105; RESP 17; TEMP 37.2; O2SAT 99
--- NOTE | 2024-09-24 10:06 | ESPR_ITS ---
RE: ROMAN GARCIA : 2000 DATE OF SERVICE: 09/24/2024 S: day #1, the patient denies any problem or complaints. She is voiding, ambulating, tolerating regular diet, passing flatus. She denies any excessive vaginal bleeding. She denies any dizziness or lightheadedness. She denies any chest pain, palpitations, shortness of breath, or lower extremity pain. The vaginal packing was removed. Waller catheter was removed. She has no excessive or significant vaginal bleeding. O: Vital Signs: Blood pressure 107/67, heart rate 90, respirations 16, temperature 98.4, and pulse oximetry is 99% on room air. Lungs: Clear to auscultation bilaterally. Heart: Regular rate and rhythm. Abdomen: Fundus is firm, nontender. Extremities: Nontender. Laboratory Data: Hemoglobin pre-delivery is 11.8 and post delivery is 9.5. A: day #1, status post vacuum-assisted vaginal delivery complicated by lateral vaginal lacerations and 400 mL of blood loss, currently hemodynamically stable with no excessive ongoing vaginal bleeding. P: Discharge home when baby is cleared. Discharge instructions given. Followup in the office in 6 weeks. DT: 09::28 TT: 10:04:00 Ref: [id number] - TID: [id number]
[2024-09-24 12:15] VITALS: BP 128/79; PULSE 106; RESP 17; TEMP 36.6; O2SAT 97
[2024-09-24 16:30] VITALS: BP 119/76; PULSE 98; RESP 18; TEMP 37.3
[2024-09-24 20:20] VITALS: BP 127/78; PULSE 109; RESP 16; TEMP 37.2; O2SAT 98
[2024-09-24] MEDS: ACETAMINOPHEN 325 MG TABLET 650 MG PO (21:09)
[2024-09-25 03:20] VITALS: BP 99/62; PULSE 84; RESP 16; TEMP 36.7; O2SAT 98
[2024-09-25 07:55] VITALS: BP 128/83; PULSE 90; RESP 18; TEMP 36.7; O2SAT 99
--- NOTE | 2024-09-25 08:38 | ESPR_ITS ---
Subjective Subjective Interval history: Patient is a 24-year-old G1 now P1 001 status post vacuum-assisted vaginal delivery for [address] Bobby for prolonged bradycardia. Patient had second-degree perineal laceration. She is resting comfortably in bed. The father the baby is at bedside. The nurse is at bedside and the entire interview is conducted through her RN as patient is Setswana-speaking only. Patient reports she is breast-feeding. She denies heavy vaginal bleeding or significant pain. She would like to go home today. Exam Vital Signs Temp Pulse Resp BP Pulse Ox O2 Del Method 98.1 F 84 16 99/62 98 Room Air 09/25/24 03:20 09/25/24 03:20 09/25/24 03:20 09/25/24 03:20 09/25/24 03:20 09/25/24 03:20 Narrative Exam Patient is alert and oriented x 3 in no apparent distress. Fundus is firm nontender about 4 cm below her umbilicus. Extremities show no cyanosis clubbing or edema. No erythema. Objective Labs 09/24/24 02:59 09/23/24 13:20 Assessment & Plan Problem List (1) Term delivered: Status: Acute Assessment and plan: Patient is day #2 after a vacuum-assisted vaginal delivery ready to go home. Discharge instructions were given including pelvic rest for 6 weeks. Patient knows to call for heavy bleeding, depression or fevers. Time Spent With Patient Time: Total time spent is greater than 50% in coordination of care (as documented) at patient's floor/unit and/or counseling patient:
== END 2024-09-25 11:50 | disposition home or self-care (01) | DRG 560 ==
LOC: S4SX 20:43 → S4NX 22:57
PROVIDERS: Admitting Provider Specialist; Visit Provider Specialist
DX: O48.0 Post-term pregnancy (principal); Z37.0 Single live birth; Z3A.40 40 weeks gestation of pregnancy; O70.1 Second degree perineal laceration during delivery; O76 Abnormality in fetal heart rate and rhythm complicating labor and delivery; O14.04 Mild to moderate pre-eclampsia, complicating childbirth
CPT/HCPCS: 36415; 59025; 59409; 80053; 81001; 82570; 84112; 84156; 84550; 85025; 85384; 85610; 85730; 86780; 86850; 86900; 86901; 94762; J0690; J2590; J3010; J3490; J7050; J7120; A9270

== ENCOUNTER 2024-10-18 08:44 | Outpatient (AMB) | payer MEDICAID, SELFPAY ==
[2024-10-18 08:54] VITALS: BP 124/75; PULSE 69; RESP 18; TEMP 36.2; O2SAT 98
--- NOTE | 2024-10-18 08:54 | AMBOBPPN_ITS ---
Vital Signs 10/18/24 08:54 Weight 55.792 kg Weight Measurement Method Standing Scale BP 124/75 Blood Pressure Source Automatic Cuff Blood Pressure Location Left Upper Arm Position Sitting Respiration 18 Pulse 69 Pulse Source Monitor Temp 97.2 F Temp Source Oral Pulse Oximetry (%) 98 Oxygen Delivery Method Room Air Allergies/Home Meds Allergies & Medications Allergies No Known Allergies Allergy (Verified 10/18/24 08:56) Medication Reconciliation vits no.126-ferrous fum 28 mg iron-folic acid 800 mcg tablet (Classic ) 1 tab PO .qd 09/22/24 [History Confirmed 10/18/24] ibuprofen 600 mg tablet 600 mg PO Q6H PRN pain #30 tabs 09/23/24 [Rx Confirmed 10/18/24] lanolin 50 % topical ointment 1 applic topical QID PRN skin irritation #15 grams 09/23/24 [Rx Confirmed 10/18/24] Intake Visit Data Collection New Patient or Established: Established Patient (seen at [facility] within 3 years) Reason for Visit:: follow-up after vacuum-assisted vaginal delivery Seen by Clinical Staff ONLY (RN/MA): No Clinical Laboratory Assistant Required: Yes Clinical Laboratory Assistant's name/title: TEE WHITAKER /RELIEF PHARMACIST Do You Feel Safe at Home: Yes Authorities Contacted: N/A PCP or OBGYN visit in last 3 months: Yes Date of Last PCP or OBGYN visit: 10/18/24 Hx Now: No Are you currently on any form of Control: No Pain Present Currently: No Pain Scale Used: Jones-Castro/Numerical Pain scale:: 0 Smoking Status Smoking Status: Never smoker HAND SINGER: Past Medical History Past Medical History: No Hx Breast Cancer, No Hx Cardiac Disorders, No Hx Hypertension, No Hx Cancer, No Hx Anemia, No Hx Renal Disease, No Hx Deep Vein Thrombosis, No Hx Diabetes Mellitus Type 1, No Hx Diabetes Mellitus Type 2, No Hx Tubal Ligation, No Hx Hysterectomy and No Hx Polycystic Ovarian Syndrome Questionnaires Covid-19 Vaccine Questionnaire Has patient been vacinated for Covid-19 Have you been vacinated for Covid-19: Yes Social History Living Situation History Marital Status: Lives With: Family Housing: House Tobacco History Smoking Status: Never smoker Second Hand Smoke Exposure: No Alcohol History Alcohol Intake: Never Substance Use History Substance Use: NONE Domestic Abuse History Do You Feel Safe at Home: Yes EPDS - PP Depression Screening [place] Pospartum Depression Screen I have been able to laugh and see the funny side of things: (0) As much as I always could I have looked forward with enjoyment to things: (0) As much as I ever did I have blamed myself unnecessarily when things went wrong: (0) No, never I have been anxious or worried for no good reason: (0) No, not at all I have felt scared or panicky for no very good reason: (0) No, not at all Things have been getting on top of me: (0) No, I have been coping as well as ever I have been so unhappy that I have had difficulty sleeping: (0) No, not at all I have felt sad or miserable: (0) No, not at all The thought of harming myself has occurred to me: (0) Never Total Score: EPDS Score: Referral is indicated for score of 9 or more, suicidal, or if provider believes patient is depressed regardless of score.: 0 HPI Interval History: Elizabeth Foss presents for a follow-up visit after a vacuum-assisted vaginal delivery on 09/23/2024. The patient reports that she is currently both b reastfeeding and bottle feeding her . She confirms receiving stitches during delivery and states that she is not experiencing any problems with the stitches or her recovery. The patient denies any specific complaints or concerns at this time. Obstetric History - GTPAL: G1 T1 L1 - history: - Delivered a live via vacuum-assisted vaginal delivery on 09/23/2024 - Patient received stitches (episiotomy or laceration repair) Surgical History - Vacuum-assisted vaginal delivery on 09/23/2024 Social History - Infant Feeding: Both and bottle feeding Review of Systems Genitourinary: Negative for problems with stitches from delivery. Delivery complications: No Is patient infant: Yes Is patient sexually active: No Exam General General Appearance: alert, in no apparent distress and healthy appearing Head Head exam: atraumatic Neck Neck exam: Present normal inspection and trachea midline Chest Chest inspection: Present normal inspection and symmetric chest wall rise External exam: Present normal external exam; Absent tenderness Neuro Neurological exam: Present oriented X3 Psych Psychiatric exam: Present normal affect and normal mood Office Procedures OB Clinic LOC & Office Proc's Nursing/Assessment Patient Status: Established Patient OB Clinic Nursing Assessment: BP Monitoring, Medication Reconciliation, Update PMH in EMR and Vital Signs OB Clinic Coordination of Care: Complex Care and Chronic Disease 1-5, Education Complex Pt/Fam, Consent,records obtained, informed consent and Staff clarify orders Special Needs: Language special needs Established Patient Charge Established Patient Point Assignment: 105 Established Patient Point Charge: EP Level 3 (80-115) Post Follow-up Visit Post Follow up Visit: Yes Assessment & Plan Diagnosis / Problem List (1) Term delivered: Status: Acute (2) Obstetric vaginal laceration: Status: Acute (3) Vacuum-assisted vaginal delivery: Status: Acute Plan Elizabeth Foss, patient who had a vacuum-assisted vaginal delivery on 09/23/2024, presenting for follow-up. status post vacuum-assisted vaginal delivery Assessment: Patient had a vacuum-assisted vaginal delivery on 09/23/2024. She received stitches during the delivery. Currently, the patient reports no problems with the stitches or recovery. She is using both and bottle feeding for the . Plan: - Continue rest and recovery - Continue as tolerated - No activity restrictions; resume activities as tolerated - Follow-up appointment scheduled for approximately 2 months post-delivery - Will examine healing of stitches at that time - Pediatric care with Dr. Munoz at [facility] referral request Assessment: Patient requested a WIC (Women, Infants, and Children) referral. Plan: - Complete WIC referral form for patient
== END 2024-10-18 09:02 | disposition home or self-care (01) ==
LOC: HODSOBC 08:44
PROVIDERS: PCP Obstetrics & Gynecology; Referring Provider Obstetrics & Gynecology; Supervising Provider Obstetrics & Gynecology; Visit Provider Obstetrics & Gynecology
DX: Z39.2 Encounter for routine postpartum follow-up (principal)
CPT/HCPCS: 99213; G0463

== ENCOUNTER 2024-11-23 10:09 | Outpatient (AMB) | payer MEDICAID, SELFPAY ==
[2024-11-23 10:19] VITALS: BP 127/68; PULSE 70; RESP 18; TEMP 36.2; O2SAT 98
--- NOTE | 2024-11-23 10:19 | AMB.OBPP ---
Vital Signs 11/23/24 10:19 Weight 55.565 kg Weight Measurement Method Standing Scale BP 127/68 Blood Pressure Source Automatic Cuff Blood Pressure Location Left Upper Arm Position Sitting Respiration 18 Pulse 70 Pulse Source Monitor Temp 97.2 F Temp Source Oral Pulse Oximetry (%) 98 Oxygen Delivery Method Room Air Allergies/Home Meds Allergies & Medications Allergies No Known Allergies Allergy (Verified 11/23/24 10:20) Medication Reconciliation vits no.126-ferrous fum 28 mg iron-folic acid 800 mcg tablet (Classic ) 1 tab PO .qd 09/22/24 [History Confirmed 11/23/24] ibuprofen 600 mg tablet 600 mg PO Q6H PRN pain #30 tabs 09/23/24 [Rx Confirmed 11/23/24] lanolin 50 % topical ointment 1 applic topical QID PRN skin irritation #15 grams 09/23/24 [Rx Confirmed 11/23/24] Intake Visit Data Collection New Patient or Established: Established Patient (seen at [facility] within 3 years) Reason for Visit:: Seen by Clinical Staff ONLY (RN/MA): No Steam Brush Operator Required: No Do You Feel Safe at Home: Yes Authorities Contacted: N/A PCP or OBGYN visit in last 3 months: Yes Date of Last PCP or OBGYN visit: 10/18/24 Hx Now: Yes Are you currently on any form of Control: No Pain Present Currently: No Pain Scale Used: Jones-Castro/Numerical Pain scale:: 0 Smoking Status Smoking Status: Never smoker FINANCE EXECUTIVE: Past Medical History Past Medical History: No Hx Breast Cancer, No Hx Cardiac Disorders, No Hx Hypertension, No Hx Cancer, No Hx Anemia, No Hx Renal Disease, No Hx Deep Vein Thrombosis, No Hx Diabetes Mellitus Type 1, No Hx Diabetes Mellitus Type 2, No Hx Tubal Ligation, No Hx Hysterectomy and No Hx Polycystic Ovarian Syndrome Questionnaires Covid-19 Vaccine Questionnaire Has patient been vacinated for Covid-19 Have you been vacinated for Covid-19: Yes Social History Living Situation History Lives With: Family Housing: House Tobacco History Smoking Status: Never smoker Second Hand Smoke Exposure: No Alcohol History Alcohol Intake: Never Substance Use History Substance Use: NONE Domestic Abuse History Do You Feel Safe at Home: Yes EPDS - PP Depression Screening [place] Pospartum Depression Screen I have been able to laugh and see the funny side of things: (0) As much as I always could I have looked forward with enjoyment to things: (0) As much as I ever did I have blamed myself unnecessarily when things went wrong: (0) No, never I have been anxious or worried for no good reason: (0) No, not at all I have felt scared or panicky for no very good reason: (0) No, not at all Things have been getting on top of me: (0) No, I have been coping as well as ever I have been so unhappy that I have had difficulty sleeping: (0) No, not at all I have felt sad or miserable: (0) No, not at all I have been so unhappy that I have been crying: (0) No, never The thought of harming myself has occurred to me: (0) Never Total Score: EPDS Score: Referral is indicated for score of 9 or more, suicidal, or if provider believes patient is depressed regardless of score.: 0 EPDS completed yes HPI Interval History: 24 yo for 8 week post . vag deliveryu 09/23/24, baby boy. 5-10. medial lateral episiotomy. vacuum delivery. happy,no depression. father involved. bonding and breast feed Was or delivery considered high risk: No Delivery type: vaginal Was labor induced: no Gestational age at delivery (weeks): 39 Delivery date: 09/23/24 Delivering provider: PATIENT DOES NOT KNOW DELIVERING PROVIDER Delivery complications: No Delivery complications comment: none Is patient infant: Yes Is patient sexually active: No Contraception planned: depo Review of Systems Review of Systems ROS limited to current FINANCE EXECUTIVE complaints: Yes Exam Narrative Physical exam: fundus well involuted, perineum healed, no s/s of infection,no redness. no lochia. breasts full General Limitations: no limitations General Appearance: alert, in no apparent distress, comfortable, cooperative, healthy appearing, well developed and well groomed Head Head exam: atraumatic, normocephalic and normal inspection Chest Chest inspection: Present normal inspection and symmetric chest wall rise Resp Respiratory exam: Present normal lung sounds bilaterally Card Cardiovascular exam: Present regular rate, normal rhythm and normal heart sounds External exam: Present normal external exam Speculum exam: Present normal speculum exam Bimanual exam: Present normal bimanual exam Skin Skin exam: Present warm, dry, intact and normal color Office Procedures OB Clinic LOC & Office Proc's Nursing/Assessment Patient Status: Established Patient OB Clinic Nursing Assessment: Medication Reconciliation, Update PMH in EMR and Vital Signs OB Clinic Coordination of Care: Education Complex Pt/Fam, Consent,records obtained, informed consent, Lab and Imaging orders, Results/Orders obtained and Staff clarify orders Established Patient Charge Established Patient Point Assignment: 85 Post Follow-up Visit Post Follow up Visit: Yes Assessment & Plan Diagnosis / Problem List (1) Routine Follow-Up: (2) 6 weeks follow-up: Status: Acute Plan discuss contraception, review depo, side effect and effectiveness. no sex x 2 week. RTC for depo. Care Reviewed delivery summary and any complications: Yes Uterus involuted to: 3 below u Perineal / incision healing noted: Yes Screened for depression: Yes Depression counseling provided: No Discussed family planning & contraception: Yes Contraception planned: depo Counseling on safe resumption of sexual activity: Yes Counseling on gradual excercise: Yes Discussed and concerns (describe), provided support: Yes Referred to specialist field engineer: No Counseled on good nutrition, hydration, and self care: Yes Reviewed vaccine status: No Chronic & current problems reconciled on problem list: Yes Infant care discussed; questions answered: feeding Follow up: routine/prn (no sex x 2 week. review depo. side effect and effectiveness, ACHES, discuss latching, continue pnv. increase fluid. rtc 2 week depo) (FP) Tobacco Smoking Status: Never smoker
== END 2024-11-23 10:34 | disposition home or self-care (01) ==
LOC: HODSOBC 10:09
PROVIDERS: Supervising Provider Advanced Practice Midwife; Visit Provider Advanced Practice Midwife
DX: Z39.2 Encounter for routine postpartum follow-up (principal); Z39.1 Encounter for care and examination of lactating mother

== ENCOUNTER 2024-12-06 14:26 | Outpatient (AMB) | payer MEDICAID, SELFPAY ==
[2024-12-06 14:44] VITALS: BP 128/77; PULSE 74; RESP 17; TEMP 36.2; O2SAT 97
--- NOTE | 2024-12-06 14:44 | GYNCLNT_ITS ---
Vital Signs 12/06/24 14:44 Weight 56.245 kg Weight Measurement Method Standing Scale BP 128/77 Blood Pressure Source Automatic Cuff Blood Pressure Location Right Upper Arm Position Sitting Respiration 17 Pulse 74 Pulse Source Monitor Temp 97.2 F Temp Source Temporal Artery Scan Pulse Oximetry (%) 97 Oxygen Delivery Method Room Air Allergies/Home Meds Allergies & Medications Allergies No Known Allergies Allergy (Verified 12/06/24 14:45) Medication Reconciliation vits no.126-ferrous fum 28 mg iron-folic acid 800 mcg tablet (Classic ) 1 tab PO .qd 09/22/24 [History Confirmed 12/06/24] ibuprofen 600 mg tablet 600 mg PO Q6H PRN pain #30 tabs 09/23/24 [Rx Confirmed 12/06/24] lanolin 50 % topical ointment 1 applic topical QID PRN skin irritation #15 grams 09/23/24 [Rx Confirmed 12/06/24] Intake Visit Data Collection New Patient or Established: Established Patient (seen at [facility] within 3 years) Reason for Visit:: DAVO Seen by Clinical Staff ONLY (RN/MA): No Masonry Inspector Required: Yes Masonry Inspector's name/title: JUSTO HAN Do You Feel Safe at Home: Yes Authorities Contacted: N/A PCP or OBGYN visit in last 3 months: Yes Date of Last PCP or OBGYN visit: 11/23/24 Hx Now: No Are you currently on any form of Control: Yes Pain Present Currently: No Pain Scale Used: Jones-Castro/Numerical Pain scale:: 0 Smoking Status Smoking Status: Never smoker Manager Quality Systems history Manager Quality Systems History Currently sexually active: No Additional comments: HAS NOT HAD MENSTRUAL DIRECTOR RETAIL BRAND DEVELOPMENT: Past Medical History Past Medical History: No Hx Breast Cancer, No Hx Cardiac Disorders, No Hx Hypertension, No Hx Cancer, No Hx Anemia, No Hx Renal Disease, No Hx Deep Vein Thrombosis, No Hx Diabetes Mellitus Type 1, No Hx Diabetes Mellitus Type 2, No Hx Tubal Ligation, No Hx Hysterectomy and No Hx Polycystic Ovarian Syndrome Questionnaires Covid-19 Vaccine Questionnaire Has patient been vacinated for Covid-19 Have you been vacinated for Covid-19: No PHQ-9 PHQ-2 Over the last 2 weeks, how often have you been bothered by any of the following problems? 1. Little interest or pleasure in doing things: not at all 2. Feeling down, depressed, or hopeless: not at all Total score: 0 PHQ-9 3. Trouble falling or staying asleep, or sleeping too much: Not at all 4. Feeling tired or having little energy: Not at all 5. Poor appetite or overeating: Not at all 6. Feeling bad about yourself - or that you are a failure or have let yourself or your family down: Not at all 7. Trouble concentrating on things, such as reading the newspaper or watching television: Not at all 8. Moving or speaking so slowly that other people could have noticed? - Or the opposite - being so fidgety or restless that you have been moving around a lot more than usual: not at all 9. Thoughts that you would be better off or of hurting yourself in some way: Not at all Total score: 0 If you checked off any problems, how difficult have these problems made it for you to do your work, take care of things at home, or get along with other people?: not difficult at all Source: Developed by Drs. Shalom Espinal, Gena Alvarado, Romulo Hauser and colleagues, with an educational rohith from [employer]. Depression screen completed yes Social History Living Situation History Marital Status: Lives With: Family Housing: House Tobacco History Smoking Status: Never smoker Second Hand Smoke Exposure: No Alcohol History Alcohol Intake: Never Substance Use History Substance Use: NONE Domestic Abuse History Do You Feel Safe at Home: Yes History of Present Illness HPI Narrative Patient reports she has not had a menstrual cycle since delivery, which she attributes to . She expresses interest in starting contraception and is considering Depo Provera injections. The provider explains that with Depo Provera, irregular periods or amenorrhea are expected side effects. Elizabeth is informed that if she prefers to have regular monthly menstruation, control pills might be a more suitable option. She is a 24-year-old female presenting for follow-up and to receive her first Depo Provera injection for contraception. She delivered on September 23, 2024. Her obstetric history includes A0 L1. She has a history of Operative Vaginal Delivery on 09/23/2024. Patient is and has a . Review of Systems Review of Systems Systems Reviewed: All systems reviewed, normal except as documented Exam General General Appearance: alert, in no apparent distress and healthy appearing Head Head exam: atraumatic Neck Neck exam: Present normal inspection and trachea midline Chest Chest inspection: Present normal inspection and symmetric chest wall rise External exam: Present normal external exam; Absent tenderness Neuro Neurological exam: Present oriented X3 Psych Psychiatric exam: Present normal affect and normal mood Office Procedures OB Clinic LOC & Office Proc's Nursing/Assessment Patient Status: Established Patient OB Clinic Nursing Assessment: Medication Reconciliation, Update PMH in EMR and Vital Signs OB Clinic Coordination of Care: Complex Care and Chronic Disease 1-5, Consent,records obtained, informed consent, Education Simp Pt/Fam and Staff clarify orders Established Patient Charge Established Patient Point Assignment: 85 Injection/Vaccine Admin SQ Im Injection: Yes In Clinic Bedside tests Bedside HCG: Yes Office Meds Depo-Provera 150 mg/mL intramuscular syringe Performing Provider: Deuce Castaneda MD Performing Location: [facility] Administered by: Tamika Garzon MA on 12/06/24 15:07 Dose Route Admin Location Dispensed Lot Number Expiration Date [facility] Ebd Teacher 150 mg IM LEFT GLUTE 1 mL [id number] 05/06/28 91718-224-12 [facility] Results Urine HCG Urine HCG Negative Last Edit by Tamika Garzon MA on 12/06/24 14:5 2 Assessment & Plan Diagnosis / Problem List (1) 6 weeks follow-up: Status: Acute (2) Encounter for initial prescription of injectable contraceptive: Status: Acute Plan Contraception Plan: - Administer first Depo-Provera injection today. - Educate patient on: ? Injection provides contraception for 3 months. ? Need for follow-up injection in 3 months. ? Potential for irregular periods or amenorrhea while on Depo-Provera. ? Use of backup contraception (e.g., condoms) for the first 15 days after injection. - Schedule follow-up appointment in 3 weeks.
== END 2024-12-06 15:06 | disposition home or self-care (01) ==
PROVIDERS: PCP Obstetrics & Gynecology; Referring Provider Obstetrics & Gynecology; Supervising Provider Obstetrics & Gynecology; Visit Provider Obstetrics & Gynecology
DX: Z39.2 Encounter for routine postpartum follow-up (principal); Z30.013 Encounter for initial prescription of injectable contraceptive
CPT/HCPCS: 81025; 96372; 99213; J3490; G0463